=== PATIENT | female | born 1985 | race Caucasian/White ===

== ENCOUNTER 2018-02-12 13:42 | Emergency (ER) | payer OTHER, SELFPAY ==
[2018-02-12 13:43] VITALS: BP 111/68; PULSE 80; RESP 16; TEMP 36.8; O2SAT 100; BMI 23.1
--- NOTE | 2018-02-12 14:01 | RAD_ITS ---
STUDY: X-RAY CHEST REASON FOR EXAM: Female, 32 years old. Chest pain TECHNIQUE: Single frontal view COMPARISON: June 21, 2016 FINDINGS: The lungs are clear and expanded. There is no demonstrated pleural abnormality. Normal size heart. Normal mediastinum and stephane. Normal visualized pulmonary arteries. Normal visualized aortic arch and descending thoracic aorta. Slight scoliosis of the thoracic spine. Normal visualized ribs, clavicles, and shoulders. There is no demonstrated abnormality of the visualized soft tissue structures of the upper abdomen. RAD/Chest 1 View (Portable) IMPRESSION: Normal x-ray examination of the chest. Electronically Signed: Sang Palafox DO at 14:57 EST Tel [phone], Service support ,
--- NOTE | 2018-02-12 14:01 | EKG12_ITS ---
Test Reason : ILL Blood Pressure : / mmHG Vent. Rate : 067 BPM Atrial Rate : 067 BPM P-R Int : 140 ms QRS Dur : 082 ms QT Int : 366 ms P-R-T Axes : 073 093 053 degrees QTc Int : 386 ms Normal sinus rhythm Rightward axis Borderline ECG Confirmed by ERIC GARCIA, MARY LOU ([id number]), field map editor INDIRA STANLEY ([id number]) on 02/15/2018 3:55:26 PM Referred By: EUGENIO Confirmed By:MARY LOU REYES MD
[2018-02-12 14:29] VITALS: PULSE 71; RESP 20
[2018-02-12] MEDS: Ipratropium/Albuterol Sulfate 3 ML AMPUL.NEB INHALATION (14:29)
[2018-02-12] MEDS: 0.9% Normal Saline 1,000 ML 150 ML IV (14:40)
[2018-02-12] MEDS: Aspirin 81 MG TAB.CHEW 324 MG PO (14:43)
[2018-02-12] MEDS: Ondansetron 4 MG/2 ML Vial IV (14:45)
[2018-02-12] MEDS: morphine 8 MG/ML Syringe IV (14:45)
--- NOTE | 2018-02-12 14:57 | ED.VISSUMM ---
- ER Visit Summary Date of Service: 02/12/18 Chief Complaint: [] Runny nose sore throat chest congestion History of Present Illness: The patient is a 32 F [] patient presents complaining of the above she indicates she had this over the last 3-5 days she was seen at an outside facility started on Augmentin, she indicates her sore throat is much improved as is her facial congestion and runny nose but she now has chest congestion and a sense of chest tightness but really when she coughs the cough is dry nonproductive. She has no history of ND PE or DVT asthma emphysema she does not smoke. family indicates she is concerned that the Augmentin is the wrong antibiotic and was wondering if she needed to be switched to a different one Physical Examination: [] Her blood pressure is 111/68 she is in no distress her nose is slightly congested throat is slightly red airways intact she has a prior history for partial thyroidectomy and tonsillectomy but again the airways intact and normal the neck is very supple the lungs are clear the heart tones are normal the abdomen soft nontender upper lower extremities neurologic exam normal lower extremities show no cyanosis clubbing or edema Test Results: [] Emergency Department Course and Treatment: [] Patient indicates this all began with a URI sore throat nasal congestion chest congestion cough clinically she looks well she has no history of ND PE or DVT or anything life-threatening at this time screening labs were obtained EKG shows a sinus rhythm nothing acute The patient's evaluation revealed generally unremarkable lab and chest x-ray studies please see those reports she is resting comfortably in the bed of explained the studies to her and her family having spent this time it appears safe to discharge her home they again question whether or not the Augmentin should be switched to something else I have explained that given that the Augmentin actually appeared to help her sore throat it is best to complete that prescription rather than switching to a different antibiotic may cause complications she will be provided with a Proventil inhaler prescription she will follow with her family doctor return for change in symptoms Treatment Plan: [] Disposition: [] Home stable Impression: [] URI, sense of chest congestion and cough This note was generated with [employer] software. It may contain incorrect words, spelling, and punctuation that were not noted in review of the chart prior to signing ED Disposition - Plan for ED Patient: Chief Complaint: Chest Pain Referrals: Dick Valentine DO [Primary Care Provider] -
[2018-02-12 14:58] LABS: Absolute Lymphocyte Count 1.08 X10^3/ul (0.83-4.51); Absolute Neutrophil Count 6.7 X10^3/uL (2.0-7.7); Basophil# 0.02 X10^3/uL; Basophil% 0.2 % (0-1); Hematocrit 36.9 % (37-47); Hemoglobin 11.9 g/dl (12.0-15.0); Lymphocyte # 1.08 X10^3/ul (4.0); Lymphocyte % 13.3 % (19-41); Mean Corp Hgb Conc 32.2 g/gl (32-36); Mean Corpuscular Hgb 30.2 pg (27.0-32.0); Mean Corpuscular Volume 93.7 fL (81-99); Mean Platelet Vol. 10.5 fl (6.2-12.0); Monocyte# 0.31 X10^3/uL; Monocyte% 3.8 % (0-10); Neutrophil # 6.72 X10^3/uL (2.7-7.7); Neutrophil % 82.5 % (47-70); Platelet Count 177 K/mm3 (150-450); RBC Distribution Width CV 13.5 % (11.6-14.6); RBC Distribution Width SD 44.5 fl (35.1-43.9); Red Blood Count 3.94 M/mm3 (4.2-5.4); White Blood Count 8.2 K/mm3 (4.4-11.0)
[2018-02-12 14:59] LABS: POSITIVE COUNT NO; POSITIVE DIFFERENTIAL NO; POSITIVE MORPHOLOGY NO
[2018-02-12 15:06] LABS: Anion Gap 5 (5-15); BUN 16 mg/dL (7-18); Calcium,Total 8.2 mg/dL (8.5-10.1); Chloride 105 mmol/L (98-107); Creatinine, Serum 0.64 mg/dL (0.55-1.02); EST Glomerular Filtration Rate 115 mL/min (>60); Est Glom Filt Rate - Afr Amer 139 mL/min (>60); Estimated Creatinine Clearance 114.61 ml/min; Glucose 119 mg/dL (74-106); Potassium 3.8 mmol/L (3.5-5.1); Sodium Level 138 mmol/L (136-145)
--- NOTE | 2018-02-12 16:17 | ED.DEP ---
ED Disposition - Plan for ED Patient: Chief Complaint: Chest Pain Instructions: ED Chest Pain Atypical Unkn Cause, ED Upper Resp Infec Abx Tx Prescriptions: Albuterol Inhaler [Ventolin Hfa] 2 puff INHALATION Q4H PRN PRN #1 inhaler PRN Reason: Wheezing Referrals: Dick Valentine DO [Primary Care Provider] -
[2018-02-12 16:39] VITALS: BP 100/58; PULSE 64; RESP 14; O2SAT 97
--- NOTE | 2018-02-12 16:39 | ED.RN ---
pt given written and verbal discharge instructions and home going prescriptions. pt family and pt verbalize understanding and deny any further questions. pt iv d/c and covered with 2x2 gauze dressing and paper tape. pt dresses self and ambulates out of dept with family.
== END 2018-02-12 16:49 | disposition home or self-care (01) ==
LOC: ED 14:49
PROVIDERS: Emergency Provider Emergency Medicine; Family Provider Family Medicine; PCP Family Medicine
DX: J06.9 Acute upper respiratory infection, unspecified (principal); R09.89 Other specified symptoms and signs involving the circulatory and respiratory systems; R05 Cough
CPT/HCPCS: 71045; 80048; 84484; 85025; 93005; 94640; 96361; 96374; 96375; 99284; J7030; J2405

== ENCOUNTER → 2019-06-15 17:12 | Outpatient (CLI) | payer OTHER, SELFPAY ==
[2019-06-07 17:34] VITALS: BMI 23.1
--- NOTE | 2019-06-15 17:20 | RAD_ITS ---
STUDY: X-RAY CHEST REASON FOR EXAM: Female, 33 years old. SOB and chest tightness x 1 week. TECHNIQUE: Frontal and lateral views COMPARISON: February 12, 2018 FINDINGS: The lungs are clear and expanded. There is no demonstrated pleural abnormality. Normal size heart. Normal mediastinum and stephane. Normal visualized pulmonary arteries. Normal visualized aortic arch and descending thoracic aorta. Mild scoliosis of the thoracic spine. Normal visualized ribs, clavicles, and shoulders. There is no demonstrated abnormality of the visualized soft tissue structures of the upper abdomen. RAD/Chest PA and Lateral IMPRESSION: Normal x-ray examination of the chest. Electronically Signed: Sang Palafox DO at 23:55 EDT Tel [phone], Service support ,
== END ==
PROVIDERS: PCP Family Medicine; Referring Provider Family Medicine; Visit Provider Family Medicine
DX: R06.02 Shortness of breath (principal)
CPT/HCPCS: 71046

== ENCOUNTER 2020-11-15 19:03 | Emergency (ER) | payer OTHER, SELFPAY ==
[2019-06-07 17:34] VITALS: BMI 23.1
[2020-11-15 19:04] VITALS: BP 101/59; PULSE 81; RESP 16; TEMP 36.3; O2SAT 99; BMI 23.3
[2020-11-15 20:03] LABS: Bacteria 0 SEEN /hpf (None Seen); Mucous, Urine 0 SEEN /hpf (<or=2+); White Blood Cells 0 SEEN /hpf (0-5)
[2020-11-15 20:04] LABS: Color, Urine Amber (Yellow); Glucose, Dipstick Normal (Normal); Ketone-Dipstick Negative (Negative); Leukocyte Esterase-Dipstick 100 /ul (Negative); Nitrite-Dipstick Negative (Negative); Occult Blood-Urine 250 /ul (Negative); Protein-Dipstick 30 mg/dl (Negative); Urine Bilirubin Dipstick Negative (Negative); Urine Clarity Cloudy (Clear); Urine Urobilinogen Normal (Normal)
[2020-11-15 20:06] LABS: Absolute Neutrophil Count 8.6 X10^3/uL (2.0-7.7); Basophil# 0.05 X10^3/uL; Basophil% 0.4 % (0-1); Eosinophil# 0.08 X10^3/uL; Eosinophils% 0.7 % (0-5); Hematocrit 40.1 % (37-47); Hemoglobin 12.8 g/dL (12.0-15.0); Lymphocyte % 15.2 % (19-41); Mean Corp Hgb Conc 31.9 g/dL (32-36); Mean Corpuscular Hgb 29.9 pg (27.0-32.0); Mean Corpuscular Volume 93.7 fL (81-99); Monocyte# 0.77 X10^3/uL; Monocyte% 6.9 % (0-10); NRBC Flagged by Analyzer 0 % (0-5); Neutrophil # 8.58 X10^3/uL (2.7-7.7); Neutrophil % 76.4 % (47-70); Platelet Count 229 K/mm3 (150-450); RBC Distribution Width CV 13.1 % (11.6-14.6); RBC Distribution Width SD 44.9 fl (35.1-43.9); Red Blood Count 4.28 M/mm3 (4.2-5.4); White Blood Count 11.2 K/mm3 (4.4-11.0)
[2020-11-15 20:13] LABS: Internal QC Validated? YES +Cl - CLEAR BKGD; Pregnancy, Serum, hCG Quali. NEGATIVE Negative
[2020-11-15 20:17] LABS: Red Blood Cells-Urine > 100 SEEN /hpf (0-5); Squamous Epithelial Cells - UA 0-5 SEEN /hpf (5-10)
[2020-11-15 20:21] LABS: Anion Gap 3 (5-15); BUN 8 mg/dL (7-18); BUN/Creat Ratio 11.7 RATIO (10-20); Calcium,Total 8.7 mg/dL (8.5-10.1); Chloride 107 mmol/L (98-107); Creatinine, Serum 0.68 mg/dL (0.55-1.02); EST Glomerular Filtration Rate 105 mL/min (>60); Est Glom Filt Rate - Afr Amer 127 mL/min (>60); Glucose 92 mg/dL (74-106); Potassium 3.3 mmol/L (3.5-5.1); Sodium Level 140 mmol/L (136-145)
--- NOTE | 2020-11-15 21:07 | EDS_ITS ---
HPI History of Present Illness Chief Complaint: Abd Pain Informant: patient Narrative Narrative: 35-year-old female states that at 10:00 this morning she developed a periumbilical lower abdominal pain. She describes a sharp and stabbing. It has been constant. She denies any urinary symptoms. No diarrhea. She does note some vomiting this morning. No reported fevers. Initially states that she has not had any abdominal surgeries and later notes that she has had prior appendectomy and cholecystectomy. PFSH PFSH Home Medications NK 11/15/20 [History Last Taken Unknown] hydrocodone-acetaminophen 1 tab PO Q6H PRN PRN 3 Days #10 tablet 11/16/20 [Rx Last Taken Unknown] Allergy/AdvReac Type Severity Reaction Status Date / Time No Known Allergies Allergy Verified 11/15/20 19:06 Surgical History (Updated 11/15/20 @ 21:[address] Chris Tan, DO) History of appendectomy History of knee surgery History of thyroid surgery Hx of cholecystectomy Social History (Updated 06/07/19 @ 18:03 by Renan VORA, PA) Smoking Status: Never smoker alcohol intake: never ROS ROS ED Constitutional Constitutional ED: Denies chills or weight loss Eyes Eyes: Denies change in vision or diplopia ENT ENT ED: Denies ear pain, rhinorrhea or sore throat Cardiovascular Cardiovascular: Denies chest pain, orthopnea, palpitations or racing heartbeat Respiratory/Chest Respiratory/Chest: Denies cough, dyspnea or orthopnea Gastrointestinal Gastrointestinal: Reports abdominal pain, nausea and vomiting; Denies diarrhea Genitourinary Genitourinary ED: Denies dysuria, hematuria or urinary frequency Musculoskeletal Musculoskeletal: Denies arthralgias or myalgias Integumentary Denies abscess or rash Neurologic Neurologic: Denies headache(s) or weakness Psychiatric Psychiatric: Denies anxiety, depression, suicidal ideation or suicidal thoughts Endocrine Endocrinology: Denies polydipsia, polyphagia or polyuria Allergic/Immunologic Allergic/Immunologic ED: Denies mouth swelling, tongue swelling or urticaria EXAM Physical Exam Const Vital Signs: 11/15/20 19:04 11/15/20 22:01 11/15/20 23:25 Temperature 97.4 F L Temperature Source Temporal Pulse Rate 81 66 72 Respiratory Rate 16 16 16 Blood Pressure 101/59 L 104/61 102/64 Blood Pressure Mean 73 75 76 Pulse Ox 99 97 Oxygen Delivery Method Room Air Room Air Positive well nourished and well developed General Appearance ED: well developed HEENT Reports normocephalic, head/scalp atraumatic and moist mucous membranes Eyes PERRL and EOMs intact bilaterally Neck no lymphadenopathy, supple and no JVD Resp normal respiratory effort and clear to auscultation bilaterally Cardio regular rate, regular rhythm and no murmurs GI Palpation: soft and tender LLQ, RLQ, periumbilical and suprapubic Back/Spine no CVA tenderness and normal ROM Extremity normal to inspection General Extremety ED: Negative for edema General Extremity: Negative for edema Neuro oriented x3 and CN's II-XII intact bilaterally Sensorium / Orientation: alert Motor Exam: strength 5/5 throughout Psych mental status grossly normal Mood & Affect: Negative for depressed or tearful Skin no rashes or lesions noted and no wounds MDM MDM MDM Narrative Medical decision making narrative: White count slightly elevated 11.2. Urinalysis shows greater than 100 red blood cells she is currently on her period. Not . CT the pelvis was obtained. This was concerning for pelvic mass. Pelvic ultrasound was obtained which is most likely uterine fibroids. She refused a transvaginal examination. I expressed my concerns that the patient should probably see gynecology. She is really set on seeing a mid nurse nursing manager and I said multiple times that it would be best to see gynecology. Father is in the room who notes understanding. Lab Data Attestation: I reviewed the patient's lab results. Labs: Laboratory Results - last 24 hr 11/15/20 11/15/20 11/15/20 19:55 20:00 20:00 WBC 11.2 H RBC 4.28 Hgb 12.8 Hct 40.1 MCV 93.7 MCH 29.9 MCHC 31.9 L RDW Std Deviation 44.9 H RDW Coeff of Patrice 13.1 Plt Count 229 MPV 10.0 Immature Gran % (Auto) 0.400 Neut % (Auto) 76.4 H Lymph % (Auto) 15.2 L [place] % (Auto) 6.9 Eos % (Auto) 0.7 Baso % (Auto) 0.4 Absolute Neuts (auto) 8.6 H Absolute Lymphs (auto) 1.70 Nucleated RBC % 0 Sodium 140 Potassium 3.3 L Chloride 107 Carbon Dioxide 30.0 Anion Gap 3 L BUN 8 Creatinine 0.68 Estim Creat Clear Calc 104.90 Est GFR (MDRD) Af Amer 127 Est GFR (MDRD) Non-Af 105 BUN/Creatinine Ratio 11.7 Glucose 92 Calcium 8.7 Serum , Qual Urine Color [place] Urine Clarity Cloudy Urine pH 5.0 Ur Specific [place] 1.020 Urine Protein 30 H Urine Glucose (UA) Normal Urine Ketones Negative Urine Occult Blood 250 H Urine Nitrite Negative Urine Bilirubin Negative Urine Urobilinogen Normal Ur Leukocyte Esterase 100 H Urine RBC > 100 SEEN Urine WBC 0 SEEN Ur Squamous Epith Cells 0-5 SEEN Urine Bacteria 0 SEEN Urine Mucus 0 SEEN 11/15/20 20:00 WBC RBC Hgb Hct MCV MCH MCHC RDW Std Deviation RDW Coeff of Patrice Plt Count MPV Immature Gran % (Auto) Neut % (Auto) Lymph % (Auto) [place] % (Auto) Eos % (Auto) Baso % (Auto) Absolute Neuts (auto) Absolute Lymphs (auto) Nucleated RBC % Sodium Potassium Chloride Carbon Dioxide Anion Gap BUN Creatinine Estim Creat Clear Calc Est GFR (MDRD) Af Amer Est GFR (MDRD) Non-Af BUN/Creatinine Ratio Glucose Calcium Serum , Qual NEGATIVE Urine Color Urine Clarity Urine pH Ur Specific [place] Urine Protein Urine Glucose (UA) Urine Ketones Urine Occult Blood Urine Nitrite Urine Bilirubin Urine Urobilinogen Ur Leukocyte Esterase Urine RBC Urine WBC Ur Squamous Epith Cells Urine Bacteria Urine Mucus Radiography Diagnostic Testing: Radiology Impression Abdomen/Pelvis CT 11/15/20 21:20 IMPRESSION: Suspicion of heterogeneous multidensity masses in the pelvis which may be fibroids, and/or ovarian/adnexal masses. Exam limited by the absence of oral contrast. Recommend further evaluation such as pelvic ultrasound, although contrast-enhanced MRI would probably be more useful. Electronically Signed: Mikael Olivas MD at 22:31 EDT , Service support , Pelvis Ultrasound 11/15/20 22:35 IMPRESSION: Findings seen on CT scan appear to represent exophytic uterine fibroids. However the patient declined transvaginal imaging and therefore this exam is limited. As indicated in the report of the CT scan, contrast MRI should be considered. Electronically Signed: Mikael Olivas MD at 23:56 EDT , Service support , Discharge Plan Triage Chief Complaint: Abd Pain ED Provider: Chris Tan Dx/Rx/DC Orders Clinical Impression: Abdominal pain, acute, Uterine fibroid Instructions: ED Uterine Fibroids Prescriptions: New hydrocodone-acetaminophen [hydrocodone-acetaminophen] 1 TABLET tablet 1 tab PO Q6H PRN PRN (Reason: Pain) 3 Days Qty: 10 RF: 0 No Action NK RF: 0 Primary Care Provider: Dick Valentine Referrals: Dick Valentine DO [Primary Care Provider] - As Needed Yue Teixeira DO [STAFF PHYSICIAN] - As soon as possible Disposition Disposition: Home, Self Care
--- NOTE | 2020-11-15 21:20 | CT_ITS ---
STUDY: CT ABDOMEN AND PELVIS WITH CONTRAST REASON FOR EXAM: Female, 35 years old. abdominal pain RADIATION DOSAGE (If Supplied By Facility): CTDIvol = ( 10.06 ) mGy, DLP = ( 594.87 ) mGycm TECHNIQUE: Transaxial images were obtained from the dome of the diaphragm to the symphysis pubis without oral contrast. IV 100mL Isovue-300 was administered. Sagittal and coronal images were reconstructed. Individualized dose optimization techniques were used for this CT. COMPARISON: None. FINDINGS: The visualized lung bases are unremarkable. The visualized portions of the heart are within normal limits. Normal liver. There are surgical clips in the gallbladder fossa consistent with a prior cholecystectomy. Normal spleen. Normal pancreas. Normal bilateral adrenal glands. Normal right kidney. Normal left kidney. Evaluation of the GI tract is limited by absence of oral contrast. Cannot exclude stomach wall thickening. No dilated loops of bowel or evidence for obstruction. Cannot exclude segmental thickening of the andres of the small or large bowel. Cannot exclude enteritis or colitis. Moderate diffuse fecal retention. Appendix within normal limits. Normal abdominal aorta. Normal inferior vena cava. Normal retroperitoneum. Normal urinary bladder. Abnormal appearance in the pelvis where there appear to be several heterogeneous cystic and soft tissue structures which could be related to the ovary/adnexa bilaterally and for which mass cannot be excluded. As example, there is a 2.8 cm probable solid mass to the left of midline above the bladder and a possible cystic 3.3 cm mass in the right pelvis. The exam is made difficult by the absence of GI contrast and further evaluation is indicated. Normal abdominal wall. Normal osseous structures. CT/Abdomen/Pelvis W IV Cont ONLY IMPRESSION: Suspicion of heterogeneous multidensity masses in the pelvis which may be fibroids, and/or ovarian/adnexal masses. Exam limited by the absence of oral contrast. Recommend further evaluation such as pelvic ultrasound, although contrast-enhanced MRI would probably be more useful. Electronically Signed: Mikael Olivas MD at 22:31 EDT , Service support ,
[2020-11-15 22:01] VITALS: BP 104/61; PULSE 66; RESP 16
--- NOTE | 2020-11-15 22:35 | US_ITS ---
STUDY: ULTRASOUND OF THE FEMALE PELVIS - COMPLETE REASON FOR EXAM: Female, 35 years old. mass- pelv LMP: 11/15/2020 TECHNIQUE: Transabdominal TECHNICAL QUALITY: Adequate. COMPARISON: CT scan of the same day. FINDINGS: Anteverted uterus measuring 8.0 x 5.2 x 6.5 cm. 4 mm endometrial echoes which are hyperechoic. There is fluid in the endometrial cavity. Multiple exophytic fibroids are seen with the 2 largest measuring 3.1 and 3.6 cm. The right ovary is visualized. The right ovary measures 3.9 x 2.2 x 2.1 cm. There is no right ovarian cyst or ovarian mass. There is no visualized right adnexal mass or complex lesion. There is normal arterial and normal venous vascularity. The left ovary is visualized. The left ovary measures 3.8 x 2.3 x 2.1 cm. There is no left ovarian cyst or ovarian mass. There is no visualized left adnexal mass or complex lesion. There is normal arterial and normal venous vascularity. There is no fluid in the cul-de-sac. Normal bladder contour. US/Pelvic (Non ) IMPRESSION: Findings seen on CT scan appear to represent exophytic uterine fibroids. However the patient declined transvaginal imaging and therefore this exam is limited. As indicated in the report of the CT scan, contrast MRI should be considered. Electronically Signed: Mikael Olivas MD at 23:56 EDT , Service support ,
[2020-11-15] MEDS: Morphine 4 MG/ML Syringe IV (23:23)
[2020-11-15 23:25] VITALS: BP 102/64; PULSE 72; RESP 16; O2SAT 97
[2020-11-16 00:53] VITALS: RESP 16
== END 2020-11-16 00:53 | disposition home or self-care (01) ==
PROVIDERS: Emergency Provider Emergency Medicine; PCP Family Medicine
DX: D25.9 Leiomyoma of uterus, unspecified (principal); R10.9 Unspecified abdominal pain; R11.2 Nausea with vomiting, unspecified
CPT/HCPCS: 74177; 76856; 80048; 81001; 84703; 85025; 96374; 99283; Q9967; A4216

== ENCOUNTER 2021-07-10 14:59 | Outpatient (CLI) | payer OTHER, SELFPAY ==
[2021-07-10 17:12] LABS: Hemoglobin 12.3 g/dL (12.0-15.0); Mean Corp Hgb Conc 32.4 g/dL (32-36); Mean Corpuscular Hgb 29.1 pg (27.0-32.0); Mean Platelet Vol. 10.7 fl (6.2-12.0); Platelet Count 250 K/mm3 (150-450); RBC Distribution Width CV 13.5 % (11.6-14.6); RBC Distribution Width SD 44.5 fl (35.1-43.9); Red Blood Count 4.22 M/mm3 (4.2-5.4)
[2021-07-15 16:33] LABS: Cancer Antigen 125 37.3 U/mL (0.0-38.1); Carcinoembryonic Antigen 0.8 ng/mL (0.0-4.7)
[2021-07-15 16:34] LABS: Carbohydrate Ag 19-9 2261 8 U/mL (0-35)
== END 2021-07-10 23:59 | disposition home or self-care (01) ==
LOC: WOBLAB 15:00
PROVIDERS: PCP Family Medicine; Visit Provider Obstetrics & Gynecology
DX: N83.209 Unspecified ovarian cyst, unspecified side (principal)
CPT/HCPCS: 36415; 82378; 85027; 86301; 86304

== ENCOUNTER → 2022-11-20 | Outpatient (CLI) | payer OTHER, SELFPAY | END | disposition home or self-care (01) | PROVIDERS: PCP Family Medicine; Visit Provider Physician Assistant Surgical | DX: R35.0 Frequency of micturition (principal) | CPT/HCPCS: 87086; 87088; 87186 ==

== ENCOUNTER 2023-04-29 19:55 | Emergency (ER) | payer OTHER, SELFPAY ==
[2023-04-29 19:56] VITALS: BP 89/53; PULSE 82; RESP 16; TEMP 36.3; O2SAT 100
--- OUTSIDE RECORDS SUMMARY | 2023-04-29 20:15 | XMS RPT_ITS | CCD ---
Author Name Unknown Address [address] [place] [address] Organization [facility] Care Team Providers Care Supervisory Training Specialist Name Role Phone DICK VALENTINE DO Primary Care Physician DICK VALENTINE Consulting Unavailable DICK VALENTINE Primary Care Unavailable DICK VALENTINE Admitting Unavailable DICK VALENTINE Attending Unavailable PROVIDER, UNKNOWN Consulting Unavailable DICK VALENTINE Consulting Unavailable SRINATH MORENO Attending Unavailable SRINATH MORENO Primary Care Unavailable SRINATH MORENO Admitting Unavailable PROVIDER, UNKNOWN Consulting Unavailable DICK VALENTINE Primary Care Unavailable DICK VALENTINE Admitting Unavailable DICK VALENTINE Attending Unavailable DICK VALENTINE Consulting Unavailable PROVIDER, UNKNOWN Consulting Unavailable Dick Valentine DO Primary Care Provider [phone] SRINATH STANLEY Admitting Unavailable SRINATH STANLEY Attending Unavailable DICK VALENTINE Primary Care Unavailable Medications Current Medications Medication Drug Class(es) Dates Sig (Normalized) Sig (Original) acetaminophen 325 mg / HYDROcodone bitartrate 5 mg oral tablet (8 sources) Opioid Agonist Start: 01-22-2023 End: 01-29-2023 take 1 tablet by mouth every six hours as needed for pain HYDROcodone-acetami nophen (NORCO) 5-325 mg per tablet Indications: Complication due to device, implant, or graft, subsequent encounter Take 1 tablet by mouth every 6 hours as needed for pain for up to 7 days. 28 tablet 0 01/22/2023 01/29/2023 Active Completed/Discontinued Medications Medication Drug Class(es) Dates Sig (Normalized) Sig (Original) ALPRAZolam 0.25 mg oral tablet (2 sources) Benzodiazepine Start: 01-07-2023 take 0.125-0.25 mg by mouth every twelve hours as needed ALPRAZolam (XANAX) 0.25 mg tablet Take 0.125-0.25 mg by mouth two times a day as needed. 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-2022 Chronic Ovarian cyst (1 source) Cyst of right ovary; Translations: [Unspecified ovarian cyst, right side] Onset: 08-06-2021 Episodic Thyroid disorders (2 sources) 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-26-2017 Chronic Past or Other Problems Problem Classification Problem Date Documented Da te Episodic/Chronic Abdominal pain (4 sources) Pelvic and perineal pain; Translations: [Pelvic and perineal pain] Onset: 04-24-2009 Episodic Nausea and vomiting (1 source) Nausea and vomiting; Translations: [Nausea with vomiting, unspecified] Onset: 04-24-2009 04-24-2009 Episodic Other gastrointestinal disorders (1 source) Diarrhea; Translations: [Diarrhea, unspecified] Onset: 04-24-2009 04-24-2009 Episodic Results Test Name Value Interpretation Reference Range Facil ity Vital Signs Date Time Vital Sign Value Performing Clinician Facility 01-22-2023 16:00-0400 Diastolic blood pressure 31 mm[Hg] Srinath Stanley DPM Work Phone: [facility] 01-22-2023 16:00-0400 SaO2% (BldA) [Mass fraction] 100 % Srinath Stanley DPM Work Phone: [facility] 01-22-2023 16:00-0400 Systolic blood pressure 107 mm[Hg] Srinath Stanley DPM Work Phone: [facility] 01-22-2023 15:26-0400 Body temperature 97.3 [degF] Srinath Stanley DPM Work Phone: [facility] 01-22-2023 11:00-0400 Body height 165.1 cm Srinath Stanley DPM Work Phone: [facility] 01-22-2023 11:00-0400 Body weight 70.2 kg Srinath Stanley DPM Work Phone: [facility] 01-22-2023 11:00-0400 Respiratory rate 18 /min Srinath Stanley DPM Work Phone: [facility] 09-07-2021 08:57-0400 Body temperature 98.6 [degF] DR NIECY CLINE DO [facility] 09-07-2021 08:57-0400 Diastolic blood pressure 67 mm[Hg] DR NIECY CLINE DO [facility] 09-07-2021 08:57-0400 Heart rate 80 /min DR NIECY CLINE DO [facility] 09-07-2021 08:57-0400 Respiratory rate 18 /min DR NIECY CLINE DO [facility] 09-07-2021 08:57-0400 Systolic blood pressure 111 mm[Hg] DR NIECY CLINE DO [facility] 09-06-2021 21:57-0400 Body temperature 97.34 [degF] DR NIECY CLINE DO [facility] 09-06-2021 21:57-0400 Diastolic blood pressure 68 mm[Hg] DR NIECY CLINE DO [facility] 09-06-2021 21:57-0400 Heart rate 71 /min DR NIECY CLINE DO [facility] 09-06-2021 21:57-0400 Reason For Taking VItal Signs DR NIECY CLINE DO [facility] 09-06-2021 21:57-0400 Respiratory rate 18 /min DR NIECY CLINE DO [facility] 09-06-2021 21:57-0400 Systolic blood pressure 110 mm[Hg] DR NIECY CLINE DO [facility] 09-06-2021 16:03-0400 Body temperature 97.34 [degF] DR NIECY CLINE DO [facility] 09-06-2021 16:03-0400 Diastolic blood pressure 68 mm[Hg] DR NIECY CLINE DO [facility] 09-06-2021 16:03-0400 Heart rate 71 /min DR NIECY CLINE DO [facility] 09-06-2021 16:03-0400 Reason For Taking VItal Signs DR NIECY CLINE DO [facility] 09-06-2021 16:03-0400 Respiratory rate 18 /min DR NIECY CLINE DO [facility] 09-06-2021 16:03-0400 Systolic blood pressure 108 mm[Hg] DR NIECY CLINE DO [facility] 09-06-2021 12:58-0400 Diastolic Blood Pressure NBP [address] NIECY CLINE DO [facility] 09-06-2021 12:58-0400 Reason For Taking VItal Signs DR NIECY CLINE DO [facility] 09-06-2021 12:58-0400 Systolic Blood Pressure NBP [address] NIECY CLINE DO [facility] 09-06-2021 07:04-0400 Diastolic Blood Pressure NBP [address] NIECY CLINE DO [facility] 09-06-2021 07:04-0400 Systolic Blood Pressure NBP [address] NIECY CLINE DO [facility] 09-05-2021 22:17-0400 Diastolic Blood Pressure NBP [address] NIECY CLINE DO [facility] 09-05-2021 22:17-0400 Systolic Blood Pressure NBP [address] NIECY CLIEN DO [facility] 09-05-2021 18:45-0400 Body height 165.[address] NIECY CLINE DO [facility] 09-05-2021 18:45-0400 Body weight 63.[address] NIECY CLINE DO [facility] 09-05-2021 18:45-0400 Body weight 23.3 kg/m2 DR NIECY CLINE DO [facility] 09-05-2021 18:38-0400 Mean blood pressure 83 mm[Hg] DR NIECY CLINE DO [facility] 09-05-2021 17:38-0400 Body temperature 97.7 [degF] DR NIECY CLINE DO [facility] 09-05-2021 17:38-0400 Heart rate 69 /min DR NIECY CLINE DO [facility] 09-05-2021 17:38-0400 Mean blood pressure 78 mm[Hg] DR NIECY CLINE DO [facility] 09-05-2021 17:34-0400 Heart rate 71 /min DR NIECY CLINE DO [facility] 09-05-2021 17:34-0400 Mean blood pressure 78 mm[Hg] DR NIECY CLINE DO [facility] 09-05-2021 17:00-0400 Heart rate 65 /min DR NIECY CLINE DO [facility] 09-05-2021 16:32-0400 Body temperature 97.52 [degF] DR NIECY CLINE DO [facility] 09-05-2021 16:32-0400 Mean blood pressure 78 mm[Hg] DR NIECY CLINE DO [facility] 09-05-2021 12:33-0400 Body temperature 97.16 [degF] DR NIECY CLINE DO [facility] 09-05-2021 10:30-0400 Body temperature 95.14 [degF] DR NIECY CLINE DO [facility] 09-05-2021 10:25-0400 Body temperature 95.23 [degF] DR NIECY CLINE DO [facility] 09-05-2021 10:20-0400 Body temperature 95.36 [degF] DR NIECY CLINE DO [facility] 09-05-2021 05:40-0400 Body height 165.[address] NIECY CLINE DO [facility] 09-05-2021 05:40-0400 Body weight 63.[address] NIECY CLINE DO [facility] 09-05-2021 05:40-0400 Heart rate 66 /min DR NIECY CLINE DO [facility] 09-05-2021 05:40-0400 Mean blood pressure 71 mm[Hg] DR NIECY CLINE DO [facility] 08-10-2021 15:50-0400 Diastolic blood pressure 60 mm[Hg] DR ELVA PERDOMO DO [facility] 08-10-2021 15:50-0400 Heart rate 77 /min DR ELVA PERDOMO DO [facility] 08-10-2021 15:50-0400 Respiratory rate 16 /min DR ELVA PERDOMO DO [facility] 08-10-2021 15:50-0400 Systolic blood pressure 100 mm[Hg] DR ELVA PERDOMO DO [facility] 08-10-2021 12:54-0400 Body temperature 98.96 [degF] DR ELVA PERDOMO DO [facility] 08-10-2021 12:54-0400 Diastolic blood pressure 73 mm[Hg] DR ELVA PERDOMO DO [facility] 08-10-2021 12:54-0400 Heart rate 93 /min DR ELVA PERDOMO DO [facility] 08-10-2021 12:54-0400 Respiratory rate 18 /min DR STEVENSON POOLFOSTER DO [facility] 08-10-2021 12:54-0400 Systolic blood pressure 107 mm[Hg] DR STEVENSON POOLFOSTER DO [facility] 08-06-2021 20:30-0400 Diastolic blood pressure 62 mm[Hg] KUSH ZUNIGA MD [facility] 08-06-2021 20:30-0400 Heart rate 64 /min KUSH ZUNIGA MD [facility] 08-06-2021 20:30-0400 Respiratory rate 16 /min KUSH ZUNIGA MD [facility] 08-06-2021 20:30-0400 Systolic blood pressure 107 mm[Hg] KUSH ZUNIGA MD [facility] 08-06-2021 18:59-0400 Body height 165.1 cm KUSH ZUNIGA MD [facility] 08-06-2021 18:59-0400 Body temperature 98.42 [degF] KUSH ZUNIGA MD [facility] 08-06-2021 18:59-0400 Body weight 59.1 kg KUSH ZUNIGA MD [facility] 08-06-2021 18:59-0400 Diastolic blood pressure 63 mm[Hg] KUSH ZUNIGA MD [facility] 08-06-2021 18:59-0400 Heart rate 81 /min KUSH ZUNIGA MD [facility] 08-06-2021 18:59-0400 Respiratory rate 16 /min KUSH ZUNIGA MD [facility] 08-06-2021 18:59-0400 Systolic blood pressure 99 mm[Hg] KUSH ZUNIGA MD [facility] Encounters Encounter Date Encounter Type Care Provider Facility Start: 01-22-2023 ambulatory SRINATH STANLEY Faci lity:[phone] Start: 01-22-2023 End: 01-22-2023 Subsequent hospital visit by physician Srinath Stanley DPM Work Phone: [facility] [place] Procedures Date Procedure Procedure Detail Performing Clinician Start: 01-22-2023 Blood count complete auto&auto difrntl wbc Charito Brady PRODUCT SAFETY TECHNICAL ASSISTANT Work Phone: Start: 08-13-2017 Arthrodesis subtalar KA CHARLEE ZUNIGA MD Start: 04-05-2015 Thyroidectomy KUSH LUCERO MD Plan of Treatment Date Care Activity Detail Author Start: 12-04-2022 Influenza vaccination Influenza Vaccine (#1) [facility] Start: 04-05-2022 Depression Assessment Depression Assessment [facility] Start: 2016 HPV Testing HPV Testing [facility] Start: 10-28-2007 Pap Testing Pap Testing [facility] Start: 2005 Urine microalbumin profile DTaP,Tdap,Td Vaccine (1 - Tdap) [facility] Start: 2004 Hepatitis C Screening Hepatitis C Screening [facility] Start: 2004 HIV Screening HIV Screening [facility] Start: 04-29-1987 Covid-19 Vaccine (#1) Covid-19 Vaccine (#1) [facility] Start: 1986 Hepatitis B Vaccine (1 of 3 - 3-dose series) Hepatitis B Vaccine (1 of 3 - 3-dose series) [facility] SURGICAL PATHOLOGY SURGICAL PATH OLOGY Lab Routine Complication due to device, implant, or graft, initial encounter Release Upon Ordering for 1 Occurrences starting 01/22/2023 [facility] Work Phone: Immunizations Immunization Date Immunization Notes Care Provider Segundo caruso 07-28-2013 measles/mumps/rubell a virus vaccine DR NIECY CLINE DO [facility] Payers Date Payer Category Payer Unknown [id number] 2020 Unknown 1986 Unknown [id number] 1986 Unknown [id number] 1986 Unknown [id number] Social History Date Type Detail Facility Start: 08-06-2021 Tobacco smoking status Never s moked tobacco (finding) [facility] Sex Assigned At Sex [facility] Start: 01-22-2023 Alcohol intake Current non-dr tram operator of alcohol (finding) [facility] Start: 01-22-2023 History of Social function [facility] Start: 01-22-[address] [facility] Start: 1985 Sex Assigned At Not on file C [facility] Medical Equipment Procedure Code Equipment Code Equipment Origin al Text Equipment Identifier Dates FDA Start: 08-13-2017 FDA Start: 08-13-2017 FDA Start: 08-13-2017 FDA Start: 08-13-2017 FDA Start: 08-13-2017 FDA Start: 08-13-2017 FDA Start: 08-13-2017 FDA Start: 08-13-2017 Unknown Unknown 08/13/17 Unknown Unknown FDA Start: 08-13-2017 FDA Start: 08-13-2017 FDA Start: 08-13-2017 FDA Start: 08-13-2017 Functional Status Date Assessment Result Facility 09-07-2021 Functional Status Yes [facility] [employer] 09-07-2021 Functional Status [facility] [employer] 09-07-2021 Functional Status [facility] [employer] 09-07-2021 Functional Status High Risk Safe ty Room check performed [facility] 09-06-2021 Functional Status [facility] spital 09-06-2021 Functional Status [facility] 09-06-2021 Functional Status [facility] 09-06-2021 Functional Status [facility] 09-06-2021 Functional Status Done [facility] 09-06-2021 [facility] Functional Status Up with assistance [facility] 09-05-2021 Functional Status Sensory Deficits None A [facility] 09-05-2021 Functional Status Assistive Equi pment abdominal binder on [facility] 09-05-2021 Functional Status ice chips and sips take n [facility] 09-05-2021 Functional Status [facility] Functional Status Identification band [facility] 09-05-2021 Functional Status [facility] Status [facility] Status [facility] 08-10-[facility] Functional Status Ramon [facility] 08-06-2021 Functional Status Ramon haleytal [facility] 08-06-2021 Functional Status [facility] Mental Status Date Assessment Result Facility 09-07-2021 Mental Status Orientation Oriented x 4 [facility] 09-06-2021 Mental Status [facility] 09-06-2021 Mental Status [facility] 08-10-[address] [facility] 08-10-[address] [facility] 08-06-[address] [facility] 08-06-[address] [facility] Clinical Notes 08-06-2021 to 01-22-2023 Negra Morrison RN - 01/22/2023 4:00 PM EDTBrikevin Op Note - Srinath Stanley DPM - 01/22/2023 2:52 PM Srinath Deluna DPM - 01/22/2023 12:14 PM EDCharito Herrera CNP - 01/21/2023 8:50 AM EDT Note Date & Type Note Facility 01-22-2023 Note HNO ID: [id number] Author: Negra Morrison RN Service: ? Author Type: Registered Nurse Type: Nursing Progress Note Filed: 01/22/2023 6:15 PM Note Text: Pt is discharged home w/ surgical shoe on left foot. [facility] 01-22-2023 Nurse Note Pt is discharged home w/ surgical shoe on left foot. documented in this encounter [facility] 01-22-2023 Surgical operatio n note BRIEF OPERATIVE / PROCEDURE NOTE LOG ID: [id number] SURGERY/PROCEDURE DATE: 01/22/2023 INCISION/PROCEDURE START TIME: 2:12 PM INCISION CLOSE/PROCEDURE END TIME: SURGEON(S)/PROCEDURALIST(S) AND RESTAURANT ASSISTANT MANAGER(S): Surgeon(s) and Role: * Srinath Stanley DPM - Primary * Sandro Veronica DPM - Resident - Assisting No Additional Staff SURGERY/PROCEDURE(S): Removal of hardware left foot ANESTHESIA: Monitored Anesthesia Care FINDINGS: None none ESTIMATED BLOOD LOSS: 0 ml SPECIMENS: Hardware to pathology COMPLICATIONS: None None CLOSURE TECHNIQUE: Primary PRE-OP/PRE-PROCEDURE DIAGNOSIS: Painful hardware left foot POST-OP/POST-PROCEDURE DIAGNOSIS: Same as Preop SIGNATURE: Srinath Stanley DPM, DPM PATIENT NAME: Virgie Chávez DATE: January 22, 2023 TIME: 2:52 PM documented in this encounter [facility] 01-22-2023 History and physical note UPDATED HISTORY AND PHYSICAL EXAMINATION SERVICE DATE: 01/22/2023 SERVICE TIME: 12:14 PHYSICAL EXAM MUST BE COMPLETED ON ADMISSION The History and Physical (completed in the past 30 days) has been reviewed and the patient has been examined. The contents accurately reflect the patient's condition with the following additions or revisions since the H&P was completed. Examination indicates no changes. This H&P can be found in the scanned documents dated January,. SIGNATURE: Srinath Stanley DPM, DPM PATIENT NAME: Virgie Chávez DATE: January 22, 2023 TIME: 12:14 PM Source Note - ProviderJudi PA-C - 01/22/2023 8:03 AM EDT documented in this encounter [facility] 01-21-2023 Note HNO ID: [id number] Author: Charito Brady CNP Service: ? Author Type: Nurse Practitioner Type: Progress Notes Filed: 01/21/2023 8:50 AM Note Text: Summary: DOS meds PATIENT MEDICATION INSTRUCTIONS Please read below carefully for your personalized instructions. Medications: If you are on blood thinner or anticoagulants including aspirin, please confirm with your surgical team on when to stop these medications. Unless instructed differently by your surgical team, stay on all of your medications until your surgery. No outpatient medications have been marked as taking for the 01/22/23 encounter (Hospital Encounter). No (Zero) medications the morning of surgery If you have any medication changes between receiving these instructions and your surgery date, please provide this updated information with the nurse who calls you the week day prior to your surgical procedure so we can update your list and provide you with updated instructions for the morning of your procedure. [facility] 01-21-2023 History of Presen t illness Narrative Summary: DOS meds PATIENT MEDICATION INSTRUCTIONS Please read below carefully for your personalized instructions. Medications: If you are on blood thinner or anticoagulants including aspirin, please confirm with your surgical team on when to stop these medications. Unless instructed differently by your surgical team, stay on all of your medications until your surgery. No outpatient medications have been marked as taking for the 01/22/23 encounter (Hospital Encounter). No (Zero) medications the morning of surgery If you have any medication changes between receiving these instructions and your surgery date, please provide this updated information with the nurse who calls you the week day prior to your surgical procedure so we can update your list and provide you with updated instructions for the morning of your procedure. documented in this encounter [facility] 09-07-2021 Hospital Discharg e instructions Patient Education 09/07/2021 14:09:24 8- Post Op [place] Surgery (03/2020) What to Do After Your Gynecology or Gynecology Oncology Surgery This sheet will give you general information on what to do when you are home after surgery. However, you should always follow any specific instructions given to you by your surgeon. Pain Medication Please follow the directions on the label of your medication and use your discharge medication list provided by the hospital. Do not take this medication on an empty stomach. This may cause a stomachache. Use a stool softener or gentle laxative (milk of magnesia) if needed. Constipation is not uncommon while taking oral pain medication. Use less of any narcotic pain medication as soon as your pain allows. You may take ysdu-qvi-rcmbwgu pain medication if you no longer need your prescribed pain medication. Gpig-dar-zomhaeh pain medications are Tylenol (acetaminophen) or Advil (ibuprofen). Do not take Tylenol if you are still taking [place] or Percocet. They are the same type of medication. Too much acetaminophen can hurt your liver. Activity It is OK to use the stairs, but try to avoid them or take less trips right after surgery. After surgery, you may feel tired. Rest is important for healing. Slowly increase your activity level by walking and doing normal activities as you feel comfortable. Follow surgeon instructions on driving. You may not be able to drive for one to six weeks depending on what surgery and incisions you have. Do not drive while taking narcotic pain medication. They should be out of your system for 24 hours. Diet Eating smaller meals instead of three large meals is good. This may help with your appetite and nutrition. Good nutrition will help you heal. Follow diet instructions that you were taught after surgery. Infection Prevention Washing your hands is one of the best ways to prevent infection. Always wash your hands before and after touching your incision or dressing. Hands carry germs that can cause infections. Try not to touch your incision. Keep the Incision Clean Wear clean, loose-fitting clothes to prevent clothes from rubbing on the incision. Put clean sheets on your bed when you get home. Do not let other people or animals touch the incision. Showering You may start to shower 24 hours after your surgery. Use a clean washcloth and towel on your incision before you use it on any other area of your body. Adjust the shower spray to gentle and use warm water. Gently wash over your incision using antibacterial soap and water and pat it dry. Do not rub the incision. Do not soak or submerge in the bathtub or hot tub until your surgeon says it is OK. Wound Care When you go home, you may leave your incision(s) open to the air. Your incision(s) may be closed with sutures or karen. If incision is closed with sutures under the skin, you do not need to have these removed as they will dissolve on their own. If incision is closed with karen, the karen will need to be removed. If your incision is horizontal (sideways), they need to be removed within three to seven days. If your incision is vertical (up and down), they need to be removed within 10 14 days. If you have thin white tape strips (Steri-Strips) over your incision, keep them dry. Do not remove them unless they begin curling up at the sides and are almost falling off or have been in place for seven days. If your incision begins coming apart, has drainage (thick, foul smelling, white, yellow, green, pink or red) with redness around the incision and feels warm to touch, call your surgeon. You may have an infection. Vaginal Care You may have drainage after surgery. Normal colors are watery, brown-black discharge. Vaginal spotting and bleeding are normal. However, if you are soaking two pads in one hour, that is not normal. Call your surgeon. No tampons or douching. NO SEXUAL INTERCOURSE FOR 6 WEEKS. Call Your Doctor If: Your pain is not controlled by pain medication. You have a fever of 100.4 degrees or higher. You have a lot of bleeding from the incision or a lot of vaginal bleeding (more than two pads per hour). You have bad stomach pain or you start throwing up. If you are unable to reach your doctor, go to the hospital. Follow Up If a follow-up appointment has not been made, please call your surgeon s office within a day. Let the office know if you have karen and they will schedule them to be removed. Contact your surgeon for any specific problems or questions that you may have. Follow Up Care 08/11/2021 14:50:28 With:NIECY CLINE DO, Obstetrics & Gynecology, Sports Medicine Address: [facility] [employer] [address] [place] [phone]- When: Unknown Comments:Follow-up in [address] Cline. [facility] 08-10-2021 Hospital Discharg e instructions Patient Education 08/10/2021 16:54:01 Pelvic Pain, Unknown Cause Pelvic Pain, Uncertain Cause Pelvic pain is pain felt in the lowest part of the belly (abdomen) and between the hipbones. The pain may occur suddenly and recently (acute). Or the pain may last for 6 months or longer (chronic). There are many possible causes of pelvic pain. The pain may be due to a problem in the female reproductive system. Or, it may be due to a problem in the digestive, urinary, or musculoskeletal systems. Based on your visit today, the exact cause of your pelvic pain is not certain. Your condition does not appear to be serious at this time. But it is important for you to keep watching for any new symptoms or worsening of your condition. General care Your healthcare provider may advise a number of ways to help manage your pain. These can include: Taking ovws-tfs-rkyclvj pain medicine. Stronger pain medicine may also be prescribed, if needed. Applying heat to the pelvic area. Use a heating pad or a hot pack. Taking a hot bath may also help. Getting plenty of rest. Making certain lifestyle changes. These can include practicing good posture and getting regular exercise. Studies have shown that these changes help reduce pelvic pain in some women. Seeing a physical therapist or pain specialist. These healthcare providers can discuss other ways to manage pain with you. Follow-up care Follow up with your healthcare provider, or as advised. When to seek medical advice Call your healthcare provider right away if any of the following occur: Fever of 100.4 F or higher, or as directed by your healthcare provider Pain worsens or you have sudden, severe pain or new pain Nausea, vomiting, sweating, or restlessness Dizziness or fainting Unusual vaginal discharge Abnormal vaginal bleeding (especially bleeding after menopause) [id number] [employer]. [address] [place] [address], [place] [address]. All rights reserved. This information is not intended as a substitute for professional medical care. Always follow your healthcare professional's instructions. Follow Up Care 08/10/2021 12:48:36 With:NIECY CLINE DO, Obstetrics & Gynecology, Sports Medicine Address: [facility] [employer] [address] [place] [phone]- When:1-2 days With:DICK VALENTINE DO Address: .[facility] [address] [address] [address] [facility] [place] [phone] When:2-4 days [facility] 08-06-2021 Hospital Discharg e instructions Patient Education 08/06/2021 21:22:51 Ovarian Cyst Ovarian Cysts The ovaries are two small organs located on each side of a woman s uterus (womb). They are part of the female reproductive system. Ovarian cysts are sacs filled with fluid or tissue that form on or inside the ovaries. Ovarian cysts are common in women, especially during childbearing years. There are different types of cysts. Most are harmless (benign) and go away on their own. They often cause no symptoms. If symptoms do occur, they can include mild pain or pressure in the lower belly (abdomen). Cysts that are large or break (rupture) may cause more severe pain and symptoms. In these cases, you may need hospital care or treatment such as surgery. You may need more extensive treatment if a cyst causes an ovary to twist (called torsion) or if your doctor suspects your cyst is cancerous. Keep in mind that most cysts are not cancerous, however. General care To help relieve pain, your healthcare provider may recommend using ksrf-qmx-fnfmazf pain medicine. If needed, your provide may prescribe stronger pain medicine. Depending on the type of cyst you have, your healthcare provider may advise taking control pills. These help shrink cysts in certain cases. They may also help prevent new cysts from forming. Be sure to take these medicines as directed if they are prescribed. Your healthcare provider may advise you to watch your symptoms over time to see if they go away or worsen. Regular ultrasound tests may also be advised. These can help check if a cyst goes away or grows in size. Follow-up care Follow up with your healthcare provider, or as advised. When to seek medical advice Call your healthcare provider right away if any of these occur: Pain worsens or fails to get better with home treatment Fever of 100.4 F (38 C) or higher (or other fever amount directed by your healthcare provider) Nausea and vomiting Weakness, dizziness, or fainting Abnormal vaginal bleeding [id number] [employer]. [address] [place] [address], [place] [address]. All rights reserved. This information is not intended as a substitute for professional medical care. Always follow your healthcare professional's instructions. Follow Up Care 08/06/2021 18:49:34 With:NIECY CLINE DO, Obstetrics & Gynecology, Sports Medicine Address: [facility] [employer] [address] [place] [phone]- When:2-4 days [facility] Evaluation + Plan note No data available for this section [facility] documented in this encounter [facility] No data available for this section [facility] Summary Purpose Family History No Family History Records FoundNo Family History Records FoundNo Family History Records Found Advance Directives No Advanced Directives Records FoundNo Advanced Directives Records FoundNo Advanced Directives Records Found Medications Administered Section Inactive Administered Medications - up to 3 most recent administrations Medication Order MAR Action Action Date Dose Rate Site lactated ringers iv infusion 5-30 mL/hr, INTRAVENOUS, CONTINUOUS, Starting on Wed01/22/23 at 1230, Until Wed01/22/23 at 1526, Preprocedure Restarted 01/22/2023 1:57 PM EDT Additional Source Comments Care Team (unrecognized sect ion and content) INFORMATION SOURCE (unrecogn ized section and content) DATE CREATED AUTHOR AUTHOR'S ORGANIZ ATION 05/20/2022 [facility] DATE CREATED AUTHOR AUTHOR'S ORGANIZ ATION 01/27/2023 [facility] Source Comments (unrecognize d section and content) In the event this informatio n is protected by the Federal Confidentiality of Alcohol and Drug Abuse Patient Records regulations: The Federal rules restrict any use of the information to criminally investigate or prosecute any alcohol or drug abuse patient.[facility] Reason for Visit (unrecogniz ed section and content) Referral ID Status Reason Start Date Expiration Date Visits Re quested Visits Authorized [id number] 1 1 Scheduled Active and Recently Administ ered Medications (unrecognized section and content) Continuous Medication Order 01/20/2023 01/21/2023 01/22/2023 lactated ringers iv infusion (CANCELED) 5-30 mL/hr, INTRAVENOUS, CONTINUOUS, Starting on Wed01/22/23 at 1230, Until Wed01/22/23 at 1526, Preprocedure 1132 (New Bag/Syring e/Bottle - Provider: Negra Morrison RN)1356 (Stopped - Provider: Sindy García APRN.CRNA - Comment: Switch to gravity)1357 (Restarted - Provider: Sindy García APRN.CRNA)1441 (Anesthesia Volume Adjustment - Provider: Sindy García APRN.CRNA)1526 (Due: Infusion Complete) PRN Medication Order 01/20/2023 01/21/2023 01/22/2023 bupivacaine 0.5 % injection (MARCAINE MDV) (CANCELED) X (OR/PROCEDURE) PRN, Starting on Wed01/22/23 at 1446, Until Wed01/22/23 at 1526, Intraprocedure 1446 (Canceled Entry - Provider: Srinath Stanley DPM)1447 (Given - Provider: Srinath Stanley DPM) dexAMETHasone sodium phosphate injection (DECADRON) (CANCELED) X (OR/PROCEDURE) PRN, Starting on Wed01/22/23 at 1454, Until Wed01/22/23 at 1526, Intraprocedure 1454 (Given - Provid er: Srinath Stanley DPM) HYDROcodone 5 mg - acetaminophen 325 mg tablet (NORCO) 1 tablet, ORAL, EVERY 6 HOURS NEEDED, Starting on Wed01/22/23 at 1523, Until 01/23/23 at 0303, Moderate Pain (4-6) - Enteral lidocaine 10 mg/mL (1 %) injection (XYLOCAINE) (CANCELED) X (OR/PROCEDURE) PRN, Starting on Wed01/22/23 at 1406, Until Wed01/22/23 at 1526, Intraprocedure 1406 (Given - Provid er: Srinath Stanley DPM - Comment: left lateral foot) FOR RECORDS PERTAINING TO PATIENTS WHO ARE OR HAVE BEEN ENROLLED IN A CHEMICAL DEPENDENCY/SUBSTANCEABUSE PROGRAM, SOME INFORMATION MAY BE OMITTED. This clinical summary was aggregated from multiple sources. Caution should be exercised in using it in the provision of clinical care. This summary normalizes information from multiple sources, and as a consequence, information in this document may materially change the coding, format and clinical context of patient data. In addition, data may be omitted in some cases. CLINICAL DECISIONS SHOULD BE BASED ON THE PRIMARY CLINICAL RECORDS. [employer] provides no warranty or guarantee of the accuracy or completeness of information in this document.
--- NOTE | 2023-04-29 20:18 | EX.ED.DYSGE1 ---
HPI History of Present Illness Chief Complaint: Abd Pain Detail of Chief Complaint: Syncope, vomiting, diarrhea, abdominal pain Informant: patient Narrative Narrative: Patient reports feeling sick today with abdominal pain, nausea, diarrhea. She reported became lightheaded and dizzy this evening and passed out. Patient denies any injury from falling. She felt like she had a fever at home but was not measured. She feels like she is chilling now. She does report some dysuria for the past couple of days. PFSH PFSH Medical History Endometriosis Home Medications hydrocodone-acetaminophen 5-325mg 5mg-325mg 1 tab PO Q6H PRN PRN Pain 3 days #10 TABLETS 04/29/23 [Rx Last Taken Unknown] ondansetron 4 mg disintegrating tablet 4 mg PO Q8H PRN PRN Nausea #10 tabs 04/29/23 [Rx Last Taken Unknown] sulfamethoxazole 800 mg-trimethoprim 160 mg tablet (Bactrim DS) 1 tab PO BID #6 tabs 04/29/23 [Rx Last Taken Unknown] Allergy/AdvReac Type Severity Reaction Status Date / Time No Known Allergies Allergy Verified 04/29/23 19:56 Surgical History History of appendectomy History of knee surgery History of thyroid surgery Hx of cholecystectomy Social History Smoking Status: Never smoker alcohol intake: never ROS ROS ED Constitutional Constitutional ED: Reports chills, fever(s) and subjective Eyes Eyes: Denies discharge from eye(s) ENT ENT ED: Denies discharge from eye(s), rhinorrhea or sore throat Cardiovascular Cardiovascular: Denies chest pain or palpitations Respiratory/Chest Respiratory/Chest: Denies cough or dyspnea Gastrointestinal Gastrointestinal: Reports abdominal pain, diarrhea, nausea and vomiting Genitourinary Genitourinary ED: Reports dysuria Musculoskeletal Musculoskeletal: Denies back pain or extremity pain Integumentary Denies Abrasions or rash Neurologic Neurologic: Reports weakness; Denies headache(s) Psychiatric Psychiatric: Denies anxiety or depression Allergic/Immunologic Allergic/Immunologic ED: Denies lip swelling or urticaria EXAM Physical Exam Const Vital Signs: 04/29/23 19:56 04/29/23 20:50 04/29/23 21:39 Temperature 97.4 F L Temperature Source Temporal Pulse Rate 82 73 83 Respiratory Rate 16 16 17 Blood Pressure 89/53 L 89/59 L 88/36 L Blood Pressure Mean 65 69 53 Pulse Ox 100 100 100 Oxygen Delivery Method Room Air Room Air 04/29/23 21:55 Temperature Temperature Source Pulse Rate 78 Respiratory Rate 16 Blood Pressure 99/60 Blood Pressure Mean 73 Pulse Ox 100 Oxygen Delivery Method Room Air Positive well nourished and well developed General Appearance ED: well developed HEENT Reports dry mucous membranes Mouth ED: Yes dry mucous membranes Mouth: dry mucous membranes Eyes EOMs intact bilaterally Chest Wall inspection of chest normal and palpation of chest normal Resp normal respiratory effort and clear to auscultation bilaterally Cardio regular rate and regular rhythm GI GI Narrative: Minimal tenderness in the epigastrium. No guarding or rebound. Hypoactive bowel sounds. Palpation: soft Extremity normal to inspection Neuro oriented x3 and no sensory deficits noted Motor Exam: strength 5/5 throughout Psych mental status grossly normal Skin no rashes or lesions noted MDM MDM MDM Narrative Medical decision making narrative: IV line established. Patient given IV fluid bolus for low blood pressure of 89/53. Patient given Zofran for nausea. Labwork obtained to evaluate for leukocytosis, anemia, and electrolyte derangement. Urinalysis obtained to evaluate for infection/hematuria. History & Record Review Discussion w/independent historian: Patient and Family Additional record(s) reviewed:: Prior inpatient record, Prior outpatient record, Prior ED visit and Prior labs Lab Data Attestation: I reviewed the patient's lab results. Labs: Laboratory Results - last 24 hr 04/29/23 04/29/23 20:20 20:49 WBC 12.2 H RBC 3.86 L Hgb 11.5 L Hct 35.3 L MCV 91.5 MCH 29.8 MCHC 32.6 RDW Std Deviation 42.8 RDW Coeff of Patrice 13.0 Plt Count 224 MPV 10.4 Immature Gran % (Auto) 0.300 Neut % (Auto) 78.3 H Lymph % (Auto) 15.0 L Guthrie % (Auto) 5.6 Eos % (Auto) 0.6 Baso % (Auto) 0.2 Absolute Neuts (auto) 9.5 H Absolute Lymphs (auto) 1.83 Nucleated RBC % 0 Sodium 138 Potassium 3.7 Chloride 105 Carbon Dioxide 29.0 Anion Gap 4 L BUN 18 Creatinine 0.81 Estim Creat Clear Calc 97.59 Est GFR (MDRD) Af Amer 102 Est GFR (MDRD) Non-Af 85 BUN/Creatinine Ratio 22.2 H Glucose 168 H Lactic Acid 1.7 Calcium 9.0 Total Bilirubin 0.40 Direct Bilirubin 0.12 AST 15 ALT 12 L Alkaline Phosphatase 40 L Total Protein 6.5 Albumin 3.8 Globulin 2.7 Lipase 31 Serum , Qual NEGATIVE Urine Color Yellow Urine Clarity Cloudy Urine pH 6.0 Ur Specific [place] 1.030 Urine Protein 100 H Urine Glucose (UA) Normal Urine Ketones 5 H Urine Occult Blood 50 H Urine Nitrite Positive H Urine Bilirubin 3 H Urine Urobilinogen 1 H Ur Leukocyte Esterase 25 H Urine RBC Cancelled Urine WBC Cancelled Ur Squamous Epith Cells Cancelled Ur Transition Epith Cell Cancelled Ur Renal Epithelial Cell Cancelled Calcium Oxalate Crystal Cancelled Uric Acid Crystals Cancelled Triple Phos Crystals Cancelled Other Crystals Cancelled Amorphous Sediment Cancelled Urine Bacteria Cancelled Hyaline Casts Cancelled Fine Granular Casts Cancelled Coarse Granular Casts Cancelled Waxy Casts Cancelled RBC Casts Cancelled WBC Casts Cancelled Urine Mucus Cancelled Urine Trichomonas Cancelled Urine Yeast Cancelled Radiography Diagnostic Testing: Clinical Impression(s) from Imaging Studies Abdomen/Pelvis CT 04/29/23 22:14 IMPRESSION: Large left adnexal cyst. Uterine fibroid. Moderate free fluid in the abdomen and pelvis. Electronically Signed: Graeme Marion MD at 23:50 EST Reading Location ID and State: [address] [place] [address] , Service support , EKG Initial EKG: Attestation: I personally reviewed and interpreted this EKG as follows: Interpretation: Sinus Rhythm (Sinus 86 with no acute ischemia.) Treatment and Re-Evaluation :: White blood cell count is elevated at 12.2 with 78% neutrophils. Hemoglobin slightly low at 11.5. Chemistry studies unremarkable other than a glucose of 168. LFTs unremarkable. Urinalysis is positive for nitrites. She is unable to provide a small sample and microscopic exam was not able to be performed. Lactic acid is normal at 1.7. After 2 L of IV fluid patient's systolic blood pressure is between 95 and 108. This appears to be her baseline when I look at prior visits. Patient was sent for CT scan of the abdomen and pelvis with IV contrast. CT reveals a large left adnexal cyst measuring 8.3 cm. There is moderate free fluid in the abdomen and pelvis. Test results are discussed with the patient. She tells me that she had a hysterectomy previously in [place]. She went to [place] for surgery secondary to endometriosis. She then had her right ovary removed at [facility]. I was able to find this record and [facility] and the surgery was on September 05, 2021. Plan was to undergo laparoscopic removal of right adnexal mass, however the procedure was converted to an open laparotomy with bilateral salpingectomy and right oophorectomy with removal of right adnexal mass. Pathology report indicates that this was a right fallopian tube that is dilated and a right ovary with a large cystic structure. Patient also had a pelvic ultrasound in May 2022. At that time her left ovary was normal and there was no evidence of pelvic mass or fluid collection. Patient has been seen by Dr. Cline through [place]. It sounds like she has not been seen by him for a couple years and patient would prefer to come here for her treatment if possible. She is referred to Dr. Finesse Leroy, on-call for no doc tonight. Patient and mother were both told it is important for very close follow-up as she does have a very large cyst with free fluid. She will be given prescription for analgesics, antiemetics, and antibiotics. Discharge Plan Triage Chief Complaint: Abd Pain ED Provider: Miley Thurman Dx/Rx/DC Orders Clinical Impression: UTI (urinary tract infection), Ovarian cyst, Syncope, Hypotension, Vomiting Instructions: UTIs Understanding, ED Low Blood Pressure, All Causes, ED Ovarian Cyst Prescriptions: New sulfamethoxazole-trimethoprim [Bactrim DS] 800-160 mg tablet 1 tab PO BID Qty: 6 0RF ondansetron 4 mg tablet,disintegrating 4 mg PO Q8H PRN PRN (Reason: Nausea) Qty: 10 0RF hydrocodone-acetaminophen 5-325 mg tablet 1 tab PO Q6H PRN PRN (Reason: Pain) 3 Days Qty: 10 0RF Primary Care Provider: Dick Valentine Referrals: Dick Valentine, DO [Primary Care Provider] - Sharifa Aguilera MD [Med Staff - Active Staff] - As soon as possible Disposition Disposition: Home, Self Care
[2023-04-29] MEDS: Ondansetron 4 MG/2 ML Vial IV (20:48)
[2023-04-29] MEDS: 0.9% Normal Saline (1000mL) 1,000 ML 1000 ML IV (20:48)
[2023-04-29 20:50] VITALS: BP 89/59; PULSE 73; RESP 16; O2SAT 100; BMI 25.6
[2023-04-29 20:51] LABS: Absolute Lymphocyte Count 1.83 X10^3/uL (0.83-4.51); Absolute Neutrophil Count 9.5 X10^3/uL (2.0-7.7); Basophil# 0.03 X10^3/uL; Basophil% 0.2 % (0-1); Eosinophil# 0.07 X10^3/uL; Eosinophils% 0.6 % (0-5); Hematocrit 35.3 % (37-47); Hemoglobin 11.5 g/dL (12.0-15.0); Lymphocyte # 1.83 X10^3/ul (0.83-4.51); Mean Corp Hgb Conc 32.6 g/dL (32-36); Mean Corpuscular Hgb 29.8 pg (27.0-32.0); Mean Corpuscular Volume 91.5 fL (81-99); Mean Platelet Vol. 10.4 fl (6.2-12.0); Monocyte# 0.68 X10^3/uL; Monocyte% 5.6 % (0-10); NRBC Flagged by Analyzer 0 % (0-5); Neutrophil # 9.53 X10^3/uL (2.7-7.7); Neutrophil % 78.3 % (47-70); Platelet Count 224 K/mm3 (150-450); RBC Distribution Width SD 42.8 fl (35.1-43.9); Red Blood Count 3.86 M/mm3 (4.2-5.4); White Blood Count 12.2 K/mm3 (4.4-11.0)
[2023-04-29 21:07] LABS: Internal QC Validated? YES +Cl - CLEAR BKGD; Pregnancy, Serum, hCG Quali. NEGATIVE Negative
[2023-04-29 21:09] LABS: Color, Urine Yellow (Yellow); Glucose, Dipstick Normal (Normal); Ketone-Dipstick 5 mg/dl (Negative); Leukocyte Esterase-Dipstick 25 /ul (Negative); Nitrite-Dipstick Positive (Negative); Occult Blood-Urine 50 /ul (Negative); Protein-Dipstick 100 mg/dl (Negative); Urine Bilirubin Dipstick 3 mg/dL (Negative); Urine Clarity Cloudy (Clear); Urine Urobilinogen 1 mg/dl (Normal)
[2023-04-29 21:12] LABS: AST(SGOT) 15 U/L (15-37); Alanine Aminotransfer ALT/SGPT 12 U/L (13-56); Albumin, Serum 3.8 g/dL (3.2-5.0); Alkaline Phosphatase 40 U/L (45-117); Anion Gap 4 (5-15); BUN 18 mg/dL (7-18); BUN/Creat Ratio 22.2 RATIO (10-20); Bilirubin, Direct 0.12 mg/dL (0.00-0.30); Chloride 105 mmol/L (98-107); Creatinine, Serum 0.81 mg/dL (0.55-1.02); EST Glomerular Filtration Rate 85 mL/min (>60); Est Glom Filt Rate - Afr Amer 102 mL/min (>60); Estimated Creatinine Clearance 97.59 ml/min; Globulin 2.7 g/dL (2.2-4.2); Glucose 168 mg/dL (74-106); Lipase 31 U/L (13-75); Potassium 3.7 mmol/L (3.5-5.1); Protein, Total 6.5 g/dL (6.4-8.2); Sodium Level 138 mmol/L (136-145)
[2023-04-29 21:21] LABS: Lactic Acid 1.7 mmol/L (0.4-1.9)
[2023-04-29 21:39] VITALS: BP 88/36; PULSE 83; RESP 17; O2SAT 100
[2023-04-29 21:55] VITALS: BP 99/60; PULSE 78; RESP 16; O2SAT 100
[2023-04-29] MEDS: 0.9% Normal Saline (1000mL) 1,000 ML 999 ML IV (22:12)
--- NOTE | 2023-04-29 22:14 | CT_ITS ---
STUDY: CT ABDOMEN AND PELVIS WITH CONTRAST REASON FOR EXAM: Female, 37 years old. Abdominal pain RADIATION DOSAGE (If Supplied By Facility): CTDIvol = ( 28.24 ) mGy, DLP = ( 844.54 ) mGycm TECHNIQUE: Transaxial images were obtained from the dome of the diaphragm to the symphysis pubis without oral contrast. 100 mL Isovue-370 was administered. Sagittal and coronal images were reconstructed. Individualized dose optimization techniques were used for this CT. COMPARISON: November 15, 2020 FINDINGS: The visualized lung bases are unremarkable. The visualized portions of the heart are within normal limits. Normal liver. There are surgical clips in the gallbladder fossa consistent with a prior cholecystectomy. Normal spleen. Normal pancreas. Normal bilateral adrenal glands. Normal right kidney. Normal left kidney. Normal visualized stomach. Normal small intestine. Normal colon. There is non-visualization of the appendix. Normal abdominal aorta. Normal inferior vena cava. Normal retroperitoneum. Normal urinary bladder. The uterus is lobular with probable fibroid. There is 8.3 cm left adnexal cysts. There is moderate free fluid in the abdomen and pelvis. Normal abdominal wall. Normal osseous structures. CT/Abdomen/Pelvis W IV Cont ONLY IMPRESSION: Large left adnexal cyst. Uterine fibroid. Moderate free fluid in the abdomen and pelvis. Electronically Signed: Graeme Marion MD at 23:50 EST ,
[2023-04-29] MEDS: Ketorolac 15 MG/ML Vial IV (22:37)
[2023-04-30 00:01] VITALS: BP 95/59; PULSE 88; RESP 16; O2SAT 100
[2023-04-30] MEDS: HYDROcodone Bitartrate/Apap 5/325 Tablet PO (00:10)
[2023-04-30] MEDS: Smz/Tmp Ds Tablet 1 TABLET PO (00:10)
[2023-04-30 00:16] VITALS: BP 97/59; PULSE 87; RESP 16; O2SAT 97
== END 2023-04-30 00:17 | disposition home or self-care (01) ==
PROVIDERS: Emergency Provider Emergency Medicine; PCP Family Medicine; Visit Provider Emergency Medicine
DX: N39.0 Urinary tract infection, site not specified (principal); I95.9 Hypotension, unspecified; R11.2 Nausea with vomiting, unspecified; R19.7 Diarrhea, unspecified; R55 Syncope and collapse; N83.209 Unspecified ovarian cyst, unspecified side
CPT/HCPCS: 74177; 80048; 80076; 81002; 83605; 83690; 84703; 85025; 87040; 93005; 96361; 96374; 96375; 99285; J7030; Q9967; A4216; J2405

== ENCOUNTER → 2023-05-17 | Outpatient (CLI) | payer SELFPAY, OTHER ==
--- NOTE | 2023-05-17 13:05 | MRI_ITS ---
EXAM: MR PELVIS WITHOUT AND WITH INTRAVENOUS CONTRAST CLINICAL INDICATION: pelvic mass TECHNIQUE: Multiplanar and multisequence MR images of the pelvis without and with intravenous contrast. CONTRAST: IV 14ML CLARISCAN COMPARISON: CT abdomen and pelvis 04/29/2023 FINDINGS: INTRAPERITONEAL SPACE: Peritoneal fluid noted along the left adnexa. BLADDER: Normal. OVARIES: Left ovary measures 5.0 x 5.0 x 3.1 cm. 3.6 and 2.8 cm cysts are noted within the ovary as well as multiple subcentimeter peripheral follicles. UTERUS/CERVIX: Uterus and right ovary are surgically absent. Endometrial stripe is normal in thickness and appearance. BONES/JOINTS: Normal. SOFT TISSUES: Normal. No pelvic wall hernia. LYMPH NODES: Normal. No enlarged lymph nodes. OTHER FINDINGS: Previously noted amorphous solid mass on the CT study is no longer present suggestive of resolved hemoperitoneum. MRI/Pelvis W/WO Contrast IMPRESSION: Cystic changes of left ovary which are likely physiologic in nature. Electronically Signed: Abdirizak Mcmillan MD at 15:13 EST ,
== END | disposition home or self-care (01) ==
LOC: MRI 13:02
PROVIDERS: PCP Family Medicine; Referring Provider Obstetrics & Gynecology; Visit Provider Obstetrics & Gynecology
DX: R19.00 Intra-abdominal and pelvic swelling, mass and lump, unspecified site (principal)
CPT/HCPCS: 72197; A9575

== ENCOUNTER 2023-06-15 08:16 | Day surgery (SDC) | payer SELFPAY, OTHER ==
[2023-06-14 10:22] LABS: International Normalized Ratio 1.1; Partial Thromboplast Time 31.8 Seconds (24.1-36.2); Prothrombin Time (Protime)PT. 14.3 SECONDS (11.7-14.9)
[2023-06-15 08:36] LABS: Internal QC Validated? YES +Cl - CLEAR BKGD; Pregnancy, Urine Negative Negative; Record Kit Lot#,Urine Preg 718086
[2023-06-15] MEDS: Lactated Ringers 1,000 ML 15 ML IV (08:43)
[2023-06-15 08:44] VITALS: BP 92/62; PULSE 76; RESP 18; TEMP 37; O2SAT 100; BMI 25.9
--- NOTE | 2023-06-15 09:52 | HP.PCM_ITS ---
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 Is patient in pain?: No Allergies acetaminophen [From [place]] Adverse Reaction (Mild, Verified 06/14/23 08:50) dizzinesshydrocodone [From [place]] Adverse Reaction (Mild, Verified 06/14/23 08:50) dizziness Medications acetaminophen 325 mg tablet (Tylenol) 325 mg PO Q6H PRN pain 05/10/23 [History Confirmed 06/14/23] oxycodone 5 mg capsule 5 mg PO Q6H PRN pain 3 days #18 caps 06/14/23 [Rx Confirmed 06/14/23] Post menopausal: No Patient : No : No PFSH Medical History Abdominal pain, acute Acute sinusitis Acute sinusitis, unspecified Adnexal cyst Anxiety Back pain Blackout Bronchitis Constipation Dysuria Easy bruising Heartburn Leg cramps Migraine headache Non-smoker URI (upper respiratory infection) Uterine fibroid Wears glasses Wears partial dentures Surgical History History of appendectomy Hx of cholecystectomy S/P foot surgery S/P hysterectomy S/P partial thyroidectomy Family History Mother Cancer Social History Smoking Status: Never smoker alcohol intake: never substance use type: does not use additional social history: Single HPI LSO Details: PORSHA CARPENTER is a 37 year old who presents for a preoperative exam. She has persistent pelvic pain and found to have an 8.3 cm adnexal cyst on ct in ER last week. CT also showed a lobular uterus consistent with a fibroid uterus. Patient states that in 2020 in [place] she had a complete hysterectomy. She then had a surgery at [facility] to remove a large ovarian cyst. She has a midline incision. Most recent MRI shows Left ovary measures 5.0 x 5.0 x 3.1 cm. 3.6 and 2.8 cm cysts are noted within the ovary as well as multiple subcentimeter peripheral follicles. UTERUS/CERVIX: Uterus and right ovary are surgically absent. Endometrial stripe is normal in thickness and appearance. BONES/JOINTS: Normal. SOFT TISSUES: Normal. No pelvic wall hernia. LYMPH NODES: Normal. No enlarged lymph nodes. OTHER FINDINGS: Previously noted amorphous solid mass on the CT study is no longer present suggestive of resolved hemoperitoneum. History 0 Elective abortions Hx Para Spontaneous abortions Hx # Term Pregnancies Ectopic pregnancies Hx # Pregnancies Multiple births # of living children ROS Const ROS Unobtainable: All systems reviewed & are unremarkable except as noted in H Resp Resp: Reports system reviewed and no additional complaints, except as documented; Denies cough GI GI: Reports as per HPI Psych Psych: Reports system reviewed and no additional complaints, except as documented Exam Const General: cooperative, healthy appearing, comfortable and no acute distress Resp Effort & Inspection: normal respiratory effort Skin General: no rashes or lesions noted Psych Appearance: grossly normal Speech and Movement: speech and movement normal Coding Level of Care Code Off vis,est,level 4 Diagnoses Pelvic mass R19.00 Assessment and Plan Assessment and Plan (1) Pelvic mass: Status: Acute Plan: After discussing the patient's diagnosis and treatment plan options, patient wishes to proceed with surgical management. I have discussed with the patient the risks, benefits, and alternatives of the procedure which include but are not limited to risks of anesthesia, bleeding, infection, possible damage to bowel, bladder, or surrounding vasculature which could lead to additional surgery to evaluate any complications. Patient agrees to procedure and wishes to proceed. ACOG/uptodate references given for additional information regarding procedure. plan for laparoscopic LSO. If upon entry there is a lot of scar tissue, I will utilize the robotic device or even plan to open, or abort the procedure. Patient understands all of these possibilities. Medications: New oxycodone 5 mg PO Q6H 3 days PRN 18 caps 0RF pain R19.00 - Intra-abdominal and pelvic swelling, mass and lump, unspecified site
--- NOTE | 2023-06-15 09:54 | DCINST_ITS ---
Discharge Instructions Diet Discharge Diet: No restrictions Activity Discharge Activity: Return to Normal Activity, May Not Drive (for two weeks or while taking narcotic pain medications.), May Shower and May Take a Tub Bath (in 7 days) May resume sexual activity in: 1 week Weight Bearing Status: Full weight bearing Dressing / Incision Call your doctor if you observe: Using more than 1 pad per hour, Shortness of breath, Chest pain and Uncontrolled pain Suture Line Care: Avoid Pulling/Pushing and Avoid Pinching/Bending Remove Dressing in: 1 week (if present) Cleanse incision/area with: Soap & Water and Keep Dressing Clean & Dry Follow Up Care Please Follow Up With: Miley Bradford DO When: Call to make an appointment with your doctor for a follow up incision check in 1-2 weeks. Test Results: Test results from this visit will be discussed in further detail at your follow- up appointment, if applicable. Discharge Plan Admission Attending Provider: Miley Bradford Primary Care Provider: Dick Valentine Consulting Providers: Jonathan Graham Discharge Orders/Prescriptions Prescriptions: New ibuprofen 800 mg tablet 800 mg PO Q8H PRN (Reason: pain) Qty: 30 0RF Continued acetaminophen [Tylenol] 325 mg tablet 325 mg PO Q6H PRN (Reason: pain) oxycodone 5 mg capsule 5 mg PO Q6H PRN (Reason: pain) 3 Days Qty: 18 0RF Referrals / Follow Up: Dick Valentine DO [Primary Care Provider] - Disposition Disposition (needs filled in before D/C Order can be placed): Home, Self Care
--- NOTE | 2023-06-15 10:10 | OV_PTH ---
PATHOLOGY RESULTS PATIENT: PORSHA CARPENTER LOC: [facility] U#:[id number] AGE/SX: 37/F ROOM: RE06/15/[address]: Dr. Miley Bradford DO : 1985 BED: DIS: 06/15/2023 SPEC #: [id number] RECD: 06/15/23 12:02 STATUS: LILIA WEEMS #: [id number] BELINDA: 06/15/23 10:[address]: Miley Bradford DEPT: SURGICAL PATHOLOGY RECD BY: Allison Coley ENTERED: 06/16/23 07:43 SP TYPE: OVARY OTHR DR: MD Dr. Dick Shelby DO Tissues: Left ovary Procedures: Surgery Specimen Level IV HEADER OPERATION: Lap robotic left oophorectomy PRE-OP DIAGNOSIS: Pelvic mass TISSUE SUBMITTED: Left ovary MICROSCOPIC DIAGNOSIS Left ovary, oophorectomy: Inflamed and hemorrhagic cyst contents. Physiologic corpus luteum and follicular cysts. See comment. SJ:maryjane 06/16/2023 COMMENT Sections of hemorrhagic and orange cyst contents predominantly consists of inflamed fibrous tissue with old hemorrhage and reactive changes, may represent contents for endometrioma. No obvious endometrial tissue is identified. Correlation with clinical findings and appropriate follow up are necessary. Case has been reviewed in consultation with Dr. Dhillon who concurs with the above diagnosis. IDC:JOSE MICROSCOPIC DESCRIPTION Slides are reviewed. GROSS DESCRIPTION Received in fixative is one container labeled with the patient's name and designated left ovary. The specimen consists of an ovary which is partly disrupted and adjacent hemorrhagic orange tissue measuring 6.0 x 3.2 x 2.5 cm and weighing 20.6 gm. The external surface is smooth. Adjacent hemorrhagic orange tissue may represent ruptured cyst contents and measures 2.5 x 3.0 x 1.5 cm. The external surface, other than the disrupted cyst contents, is inked black and reveals multiple cysts filled with clear fluid. The largest cyst measures 1.7 cm in greatest dimension. A corpus luteum is also noted measuring 2.0 cm in greatest dimension. Gas Plumbing Inspector sections are submitted in six cassettes as follows: 1 & 2 - ruptured cyst contents, 3-6 - ovary. / VICKY:maryjane 06/15/2023 TC:5 CPT: 10318
[2023-06-15] MEDS: Bupivacaine 0.25% 30 ML Vial (11:33)
[2023-06-15 11:51] VITALS: BP 92/62; BP 95/54; PULSE 106; RESP 16; TEMP 36.8; O2SAT 100
[2023-06-15 11:55] VITALS: BP 81/42; BP 92/62; PULSE 99; RESP 16; O2SAT 99
[2023-06-15 12:00] VITALS: BP 86/56; BP 92/62; PULSE 89; RESP 16; O2SAT 100
--- NOTE | 2023-06-15 16:19 | OP.PCM_ITS ---
Problems Associated Problem List Diagnoses (1) Pelvic mass: (2) Adnexal cyst: Report of Operation Date of Procedure: 06/15/23 Pre-Operative Diagnosis: endometrial mass, history of extensive pelvic surgery Post-Operative Diagnosis: endometrial mass, history of extensive pelvic surgery Surgery/Procedure Performed:: robotic left salpingo-oophorectomy and lysis of adhesions Description of Surgical Findings:: adhesions of the left ovary to the right side of the pelvis and bowel. Evidence of endometriosis and chocolate cyst of the left ovary Surgeon: Miley Bradford acute care clinical nurse specialist: Daniele Matthews Type of Anesthesia: General Specimen's removed: left ovary and fallopian tuve Drains: none Estimated Blood Loss (mL): 10cc Description of Procedure: The patient was brought to the operating room and general anesthesia was achieved. She was placed in a dorsal supine position and preped and draped in the usual sterile fashion. A sponge stick was placed in the vagina and a Minaya catheter was placed in the urethra. Gloves were changed and approximately 23 cm above the pubic symphysis in the midline, and after Marcaine injection, a 8 mm incision was made. An 8 mm trocar was inserted through the laparoscope, then inserted into the abdomen under direct visualization using the laparoscope. Good abdominal placement was noted and no complications were appreciated. An air seal device was utilized to create pneumoperitoneum. At 12 cm lateral to the midline on the left and right sides 8 mm accessory ports were placed. Next a left lower quadrant 8 mm funeral home assistant port site was placed for the air seal device . The patient was placed in steep Trendelenburg position. The robot was docked. Using the bipolar cautery with scissors and a pro-grasp, the ovary was grasped and fine adhesions from the bowel were dissected off without difficulty. The left ovary was attached with fine adhesions to the right side of the pelvis. Connecting the ovary to the right side was a 5 cm endometrioma. Fine adhesions were removed from the endometrioma. During this time the cyst broke open and cholate like material oozed out. Irrigation was performed. The left ovary was again tented up using the pro-grasp device and the IP ligament was cauterized and cut using the vessel sealer device. The specimen was placed in a 5 mm endocatch bag and brought to the level of the skin. A April clamp was used to separate the tissue enough to remove the ovary. Excellent hemostasis was noted. The robot was undocked and the trocars were removed. The trocar sites were removed using a 4-0 Monocryl subcuticular stitch. The sponge stick was removed from the vagina. The minaya catheter was also removed. The patient tolerated the procedure well. Sponge, lap, and needle counts were correct x 2. Admit VTE Documentation VTE Present on Admission: No VTE Mechan Device Prophylaxis: SCD's VTE Pharm Prophylaxis ordered?: No Multi Select Codes Urinary/Genital Urinary/Genital CPT Codes: 36756 Lysis of adhesions, laproscopic [place] 90754 Lapr oscopic BS/O
== END 2023-06-15 14:22 | disposition home or self-care (01) ==
LOC: SDC 08:16 → AC 08:17
PROVIDERS: Anesthesiology; PCP Family Medicine; Referring Provider Obstetrics & Gynecology; Visit Provider Obstetrics & Gynecology
PROC: (CPT 58661; principal; 2023-06-15 09:55)
DX: N80.102 Endometriosis of left ovary, unspecified depth (principal); N85.8 Other specified noninflammatory disorders of uterus; Z90.49 Acquired absence of other specified parts of digestive tract; Z90.710 Acquired absence of both cervix and uterus; E89.0 Postprocedural hypothyroidism; R19.00 Intra-abdominal and pelvic swelling, mass and lump, unspecified site; N80.9 Endometriosis, unspecified; N73.6 Female pelvic peritoneal adhesions (postinfective)
CPT/HCPCS: 58661; 58660; 00840; 36415; 81025; 85610; 85730; 86850; 86900; 86901; 88305; J7120; J2405

== ENCOUNTER → 2024-09-01 | Outpatient (CLI) | payer OTHER, SELFPAY ==
[2024-09-01 16:29] LABS: Absolute Lymphocyte Count 1.17 X10^3/uL (0.83-4.51); Absolute Neutrophil Count 5.6 X10^3/uL (2.0-7.7); Basophil# 0.04 X10^3/uL; Basophil% 0.5 % (0-1); Eosinophil# 0.12 X10^3/uL; Eosinophils% 1.6 % (0-5); Hematocrit 36.6 % (37-47); Hemoglobin 11.9 g/dL (12.0-15.0); Lymphocyte # 1.17 X10^3/ul (0.83-4.51); Lymphocyte % 15.9 % (19-41); Mean Corp Hgb Conc 32.5 g/dL (32-36); Mean Corpuscular Hgb 30.2 pg (27.0-32.0); Mean Corpuscular Volume 92.9 fL (81-99); Mean Platelet Vol. 9.9 fl (6.2-12.0); Monocyte# 0.42 X10^3/uL; Monocyte% 5.7 % (0-10); NRBC Flagged by Analyzer 0 % (0-5); Neutrophil # 5.57 X10^3/uL (2.7-7.7); Platelet Count 174 K/mm3 (150-450); RBC Distribution Width CV 12.7 % (11.6-14.6); RBC Distribution Width SD 43.8 fl (35.1-43.9); Red Blood Count 3.94 M/mm3 (4.2-5.4); White Blood Count 7.3 K/mm3 (4.4-11.0)
[2024-09-01 17:17] LABS: ALB/GLOB Ratio 2.1 RATIO (0.9-2.4); AST(SGOT) 23 U/L (<=31); Alanine Aminotransfer ALT/SGPT 9 U/L (<=34); Albumin, Serum 4.3 g/dL (3.5-5.0); Alkaline Phosphatase 65 U/L (35-104); Anion Gap 10 (5-15); BUN 14 mg/dL (4-19); BUN/Creat Ratio 21.6 RATIO (10-20); Calcium,Total 8.7 mg/dL (7.6-11.0); Carbon Dioxide 27.5 mmol/L (21.0-32.0); Chloride 101 mmol/L (98-108); Creatinine, Serum 0.66 mg/dL (0.70-1.20); EST Glomerular Filtration Rate 116 (>60); Globulin 2.1 g/dL (2.2-4.2); Glucose 111 mg/dL (70-99); Protein, Total 6.5 g/dL (5.9-8.4); Sodium Level 138 mmol/L (133-145); Total Bilirubin 0.16 mg/dL (0.00-1.30)
[2024-09-04 16:08] LABS: EBV Acute VCA IgM < 36.0 U/mL (0.0-35.9)
== END | disposition home or self-care (01) ==
LOC: LAB 15:53
PROVIDERS: PCP Family Medicine; Referring Provider Student in an Organized Health Care Education/Training Program; Visit Provider Student in an Organized Health Care Education/Training Program
DX: R10.9 Unspecified abdominal pain (principal)
CPT/HCPCS: 36415; 80053; 85025; 86664; 86665

== ENCOUNTER 2024-10-20 10:02 | Day surgery (SDC) | payer SELFPAY, OTHER ==
[2024-10-20] VITALS (8 sets, daily range): BP systolic 89–101; BP diastolic 55–69; PULSE 58–79; RESP 16–18; TEMP 36.1–36.7; O2SAT 97–100; BMI 23.0
[2024-10-20] MEDS: Lactated Ringers 1,000 ML 15 ML IV (10:41)
--- NOTE | 2024-10-20 11:11 | PCM.HP.STD ---
HPI - General General Date of Admission: 10/20/24 Date of Service: 10/20/24 HPI Narrative VIRGIE CARPENTER, is a 38 F who presents with the chief Complaint: epigastric pain [facility] 08.03.24 with abdominal pain x7 days CT abd/pelvis .04.29; without acute abnormality OV 09.01.24 Pt with abd pain X2 weeks. Pain is intermittent and not daily. When she does get the abd pain it will last for a few hours. She has a hx of hiatal hernia and had it repaired about 4 years ago. This pain feels similar to when she had a hiatal hernia. Pain is worse with greasy foods. She has constipation at baseline and takes laxatives as needed. Pt wonders if her symptoms are related to a viral infection mono. She denies n/v, diarrhea or blood in her stool. [facility] Medical History Anemia History of hiatal hernia Depression Hormone deficiency History of frequent headaches Carpal tunnel syndrome History of endometriosis Chocolate cyst of ovary History of ovarian cyst Wears glasses Wears partial dentures Anxiety Easy bruising Back pain Migraine headache Blackout Constipation Heartburn Non-smoker Leg cramps Adnexal cyst Dysuria Acute sinusitis Uterine fibroid Abdominal pain, acute Acute sinusitis, unspecified URI (upper respiratory infection) Bronchitis Home Medications ?Medication ?Instructions ?Recorded ?Last Taken ?Type NK 10/20/24 Unknown History Allergy/AdvReac Type Severity Reaction Status Date / Time acetaminophen (From [place]) AdvReac Mild dizziness Verified 10/20/24 10:34 hydrocodone (From [place]) AdvReac Mild dizziness Verified 10/20/24 10:34 Family History Mother Cancer Surgical History History of left salpingo-oophorectomy S/P hysterectomy S/P foot surgery S/P partial thyroidectomy Hx of cholecystectomy History of appendectomy Social History Smoking Status: Never smoker alcohol intake: never substance use type: does not use additional social history: Single ROS Constitutional Constitutional: Denies fatigue, fever(s), poor appetite, weight gain or weight loss Gastrointestinal Gastrointestinal: Denies belching, bloating, change in bowel habits, change in stool character, chewing difficulty, coffee ground emesis, constipation, cramping, diarrhea, dyspepsia, dysphagia, early satiety, excessive flatus, fecal incontinence, heartburn, hematemesis, hematochezia, hemorrhoids, loose stools, melena, nausea, odynophagia, rectal bleeding, tenesmus, vomiting or weight changes Vital Signs Vital Signs Vital Signs: 10/20/24 10:35 10/20/24 10:35 Temperature 97.4 F L Temperature Source Temporal Pulse Rate 58 L Respiratory Rate 18 Respiratory Pattern Normal Blood Pressure 101/68 Blood Pressure Mean 79 Blood Pressure Source Monitor Blood Pressure Position Semi-Fowlers Blood Pressure Location Right Arm Pulse Ox 100 Oxygen Delivery Method Room Air Weight Weight: 138 lb 7.205 oz Body Mass Index (BMI) 23.0 Assessment & Plan Assessment/Plan (1) Abdominal pain: PLAN: Assessment and Plan (1) Abdominal pain: Status: Acute Plan: Virgie is a 38 yo female pt here today for evaluation of epigastric pain x 2 weeks. Pt having intermittent abd pain every few days that is achy and lasting a few hours. Pain is worse with certain foods. She is s/p hiatal hernia repeat about 4 years ago. She feels this pain is similar to when she had the hiatal hernia. I have recommended she start a PPI and undergo EGD to ensure the wrap is still intact. She declines a PPI at this time and would prefer to find out why she is having the pain first. I ordered blood work to rule out infection. She will be scheduled for an EGD. She may cancel if her symptoms improve. -Recommend PPI -EGD -CBC and CMP -f/u after procedure Orders: Orders CBC W/Diff, Automated Today R10.9 - Unspecified abdominal pain EBV Acute Prof IgG / IgM Today R10.9 - Unspecified abdominal pain Comprehensive Metabolic Profil Today R10.9 - Unspecified abdominal pain
--- NOTE | 2024-10-20 11:15 | EGD_PTH ---
PATIENT: PORSHA CARPENTER LOC: [facility] U#:[id number] AGE/SX: 38/F ROOM: RE10/20/[address]: Dr. Christiano Lara DO : 1985 BED: DIS: 10/20/2024 SPEC #: [id number] RECD: 10/20/24 13:09 STATUS: LILIA FAUSTINA #: [id number] BELINDA: 10/20/24 11:[address]: Christiano Lara DEPT: SURGICAL PATHOLOGY RECD BY: Vincent Emanuel ENTERED: 10/23/24 11:10 SP TYPE: EGD BIOPSY SHERYL DR: Roopa Wilson, SOURCING COORDINATOR-C Tissues: A - Esophagus, NOS Procedures: Surgery Specimen Level IV HEADER OPERATION: EGD with biopsy PRE-OP DIAGNOSIS: Abdominal pain TISSUE SUBMITTED: A- Distal esophagus biopsy MICROSCOPIC DIAGNOSIS A. Distal esophagus, biopsy: * Columnar mucosa with chronic inflammation. * Negative for intestinal metaplasia, dysplasia or malignancy. MICROSCOPIC DESCRIPTION Slides are reviewed. GROSS DESCRIPTION A. Received in fixative is one container labeled with the patient's name and designated Distal esophagus biopsy. The specimen consists of two irregular fragments of light moran soft tissue that in aggregate measure 0.3 and 0.4 cm. The specimen is totally submitted in one cassette. NCBillie 10/23/2024 CPT:58983
--- NOTE | 2024-10-20 11:22 | PCM.PRE.AN2 ---
ASA Classification* ASA Classification ASA Classification: 2 Assessment & Plan Anesthesia* Anesthesia Assessment Anesthesia Assessment: Discussed sedation and/or anesthesia options, risks, benefits, and alternatives with patient/parents/legal guardian/POA. Questions invited. The patient/parents/legal guardian/POA seems to understand and agrees to proceed with anesthesia plan. Reviewed the physical assessment, medical history, allergy history and patient home medications list prior to surgery/procedure/anesthetic and documented any changes. Performed airway and anesthesia risk assessments. Anesthesia Type Anesthesia Type: MAC History Source History Obtained from:: Patient and Chart Anesthesia Focused Assessment* Temperature: 97.4 F Pulse Rate: 58 Blood Pressure: 101/68 Respiratory Rate: 18 Pulse Ox: 100 Oxygen Delivery Method: Room Air Airway Assessment Mouth opens: >3 cm Mallampati Score: II Teeth Condition: Partial (Patient has an upper partial. He will come out.) Neck Range of motion (ROM): Limited ROM (Slight decrease in extension) Labs Anesthesia Preop lab: CBC WBC 7.3 K/mm3 (4.4-11.0) 09/01/24 15:55 09/01/24 RBC 3.94 M/mm3 (4.2-5.4) L 09/01/24 15:55 09/01/24 Hgb 11.9 g/dL (12.0-15.0) L 09/01/24 15:55 09/01/24 Hct 36.6 % (37-47) L 09/01/24 15:55 09/01/24 Plt Count 174 K/mm3 (150-450) 09/01/24 15:55 09/01/24 CHEMISTRY Potassium 4.0 mmol/L (3.3-5.1) 09/01/24 15:55 09/01/24 Sodium 138 mmol/L (133-145) 09/01/24 15:55 09/01/24 BUN 14 mg/dL (4-19) 09/01/24 15:55 09/01/24 Creatinine 0.66 mg/dL (0.70-1.20) L 09/01/24 15:55 09/01/24 Glucose 111 mg/dL (70-99) H 09/01/24 15:55 09/01/24 COAG PT 14.3 SECONDS (11.7-14.9) 06/14/23 09:37 06/14/23 Urine Test Negative Negative 06/15/23 08:25 06/15/23 Tst Clinic Negative 11/20/22 13:25 11/20/22 Pre-Assessment Diagnosis/Proposed Procedure Planned Operative Procedure(s): EGD Anesthesia History Anesthesia History - behavioral medical director: Anesthesia History - behavioral medical director Hx Hospitalization No 10/18/24 15:40 Any Problems With Anesthesia No 10/18/24 15:40 Cholinesterase deficiency No 10/18/24 15:40 You/Your Family Experience No 10/18/24 15:40 fever (hyperthermia) with Relationship Recent Exposure to Contagious No 10/20/24 10:35 Disease Does patient have nerve No 10/18/24 15:40 stimulator Patient instructed to have device shut off --Does patient have Pacemaker No 10/20/24 10:35 or ICD? When Was Last Pacemaker Check QUESTION #4 FULL TEXT: You/Your Family Experience fever (hyperthermia) with Anesthesia Last Oral Intake Last Oral intake: Last Oral Intake NPO since 23:30 10/20/24 10:35 Meds taken in AM with sips of No 10/20/24 10:35 water? Meds patient instructed to take am of surgery PONV PONV - behavioral medical director: PONV - behavioral medical director Female Yes 10/18/24 15:40 HX of Motion Sickness No 10/18/24 15:40 HX of N/V After Surgery No 10/18/24 15:40 Non-Smoker Yes 10/18/24 15:40 Duration of Surgery greater No 10/18/24 15:40 than 60 minutes Number of Risk Factors 2 10/18/24 15:40 PONV Score Moderate Risk 10/18/24 15:40 Height & Weight Height & Weight: Anesthesia: Height & Weight Height 5 ft 5 in 10/20/24 10:35 Weight: 62.8 kg 10/20/24 10:35 Body Mass Index (BMI) 23.0 10/20/24 10:35 Respiratory Assessment Respiratory Assessment - behavioral medical director: Respiratory Tract Infection Hx - behavioral medical director Hx Respiratory Tract Infection No 10/18/24 15:40 STOP Sleep Apnea STOP Sleep Apnea - behavioral medical director: STOP Sleep Apnea - behavioral medical director Hx Hypertension No 10/18/24 15:40 Hx Sleep Apnea No 10/18/24 15:40 CPAP BIPAP Do you snore loudly (louder No 10/18/24 15:40 than talking or can be heard Do you often feel tired/ No 10/18/24 15:40 fatigued/ sleepy during daytime? Has anyone observed you stop No 10/18/24 15:40 breathing during sleep? STOP Results Negative 10/18/24 15:40 QUESTION #5 FULL TEXT : Do you snore loudly (louder than talking or can be heard through closed doors)? Tobacco Use History Tobacco Use History - behavioral medical director: Tobacco Use History - behavioral medical director Tobacco Use Smoking Status Never smoker 10/18/24 15:40 Hx Tobacco Use No 10/18/24 15:40 Years Smoking Packs Smoked per Day Smoking Cessation Date was within the last 15 years Hx Smoking Cessation Date Hx Smoking Cessation Counseling Hematologic Medial History Hematologic Hx - behavioral medical director: Hematologic Medical Hx - gas tender Hx of Blood Transfusion No 10/18/24 15:40 Hx of Transfusion in last 3 No 10/18/24 15:40 Months Date of Last Transfusion (if within last 3 months) Ever experience any problems No 10/18/24 15:40 with transfusion(s)? Specify any problems Hx of Preganancy in last 3 No 10/18/24 15:40 Months Nurse Filling Out Transfusion [facility] 10/18/24 15:40 & Questions: Date: 10/18/24 10/18/24 15:40 Time: 15:45 10/18/24 15:40 Patient unable to answer at this time (ie. confused, unrespo /Reproduction History /Reproductive History - behavioral medical director: /Reproductive Hx- behavioral medical director Hx Now No 10/18/24 15:40 Gestational Age (in weeks): EDC: Hx Hx Para Hx Section SAB No 10/18/24 15:40 Active Medications Active Medications: Current Medications Generic Name Dose Route Start Last Admin Trade Name Freq PRN Reason Stop Dose Admin Lactated Ringer's 1,000 mls @ 15 mls/hr 10/20/24 10:15 10/20/24 10:41 IV 15 mls/hr .Q48H TEOFILO Administration PFSH Medical History Anemia History of hiatal hernia Depression Hormone deficiency History of frequent headaches Carpal tunnel syndrome History of endometriosis Chocolate cyst of ovary History of ovarian cyst Wears glasses Wears partial dentures Anxiety Easy bruising Back pain Migraine headache Blackout Constipation Heartburn Non-smoker Leg cramps Adnexal cyst Dysuria Acute sinusitis Uterine fibroid Abdominal pain, acute Acute sinusitis, unspecified URI (upper respiratory infection) Bronchitis Home Medications ?Medication ?Instructions ?Recorded ?Last Taken ?Type NK 10/20/24 Unknown History Allergy/AdvReac Type Severity Reaction Status Date / Time hydrocodone (From [place]) AdvReac Mild dizziness Verified 10/20/24 10:34 Family History Mother Cancer Surgical History History of left salpingo-oophorectomy S/P hysterectomy S/P foot surgery S/P partial thyroidectomy Hx of cholecystectomy History of appendectomy Social History Smoking Status: Never smoker alcohol intake: never substance use type: does not use additional social history: Single Review of Systems (Anesthesia) ROS Narrative System reviewed and no additional complaints, except as documented.
--- NOTE | 2024-10-20 12:19 | PCM.POST.ANE ---
Anesthesia: Postop Eval I Current Vital Signs Temperature: 97.8 F Pulse Rate: 79 Blood Pressure: 95/69 Respiratory Rate: 18 Pulse Ox: 99 Oxygen Delivery Method: Room Air Assessment Airway patent: Yes Spontaneous unlabored respirations: Yes Mental status: Awake and Calm nausea: No Vomiting: No Anesthesia Complication: No Fluid Hydration Crystalloid volume administer (ml): 300 Total IV fluid infused: 300 Progress Note Anesthesia document: Postop Eval 1 completed: Yes
--- NOTE | 2024-10-20 12:23 | OP.EGD_ITS ---
Patient Name: Virgie Chávez Procedure Date: 10/20/2024 11:54 AM Date of : 1985 Age: 38 Procedure: Upper GI endoscopy Indications: Epigastric abdominal pain, Functional Dyspepsia Providers: Christiano Lara DO Referring MD: Dick Valentine Medicines: Monitored Anesthesia Care Patient Profile: This is a 38 year old female. Refer to note in patient chart for documentation of history and physical. Patient has symptoms. Complications: No immediate complications. Procedure: Pre-Anesthesia Assessment: - Prior to the procedure, a History and Physical was performed, and patient medications and allergies were reviewed. The patient is competent. The risks and benefits of the procedure and the sedation options and risks were discussed with the patient. All questions were answered and informed consent was obtained. Patient identification and proposed procedure were verified by the physician in the pre-procedure area. Mental Status Examination: alert and oriented. Airway Examination: normal oropharyngeal airway and neck mobility. Respiratory Examination: clear to auscultation. CV Examination: normal. Prophylactic Antibiotics: The patient does not require prophylactic antibiotics. Prior Anticoagulants: The patient has taken no anticoagulant or antiplatelet agents except for NSAID medication. ASA Grade Assessment: II - A patient with mild systemic disease. After reviewing the risks and benefits, the patient was deemed in satisfactory condition to undergo the procedure. The anesthesia plan was to use monitored anesthesia care (MAC). Immediately prior to administration of medications, the patient was re-assessed for adequacy to receive sedatives. The heart rate, respiratory rate, oxygen saturations, blood pressure, adequacy of pulmonary ventilation, and response to care were monitored throughout the procedure. The physical status of the patient was re-assessed after the procedure. After obtaining informed consent, the endoscope was passed under direct vision. Throughout the procedure, the patient's blood pressure, pulse, and oxygen saturations were monitored continuously. The gastroscope was introduced through the mouth, and advanced to the fourth part of the duodenum. Small bowel enteroscopy was deemed necessary. The upper GI endoscopy was accomplished without difficulty. The patient tolerated the procedure well. Scope In: 12:04:56 PM Scope Out: 12:08:53 PM Total Procedure Duration Time 0 hours 3 minutes 57 seconds Findings: The Z-line was irregular and was found 38 cm from the incisors. Biopsies were taken with a cold forceps for histology. Verification of patient identification for the specimen was done. Estimated blood loss was minimal. Evidence of a fundoplication was found in the gastric fundus. The wrap appeared intact. This was traversed. Suspect gastroparesis due to absence of peristalsis and patient symptoms. No gross lesions were noted in the entire examined duodenum. Impression: - Z-line irregular, 38 cm from the incisors. Biopsied. - A fundoplication was found. The wrap appears intact. - Gastroparesis. - No gross lesions in the entire examined duodenum. Recommendation: - Discharge patient to home. - Resume previous diet. - Continue present medications. - Await pathology results. Procedure Code(s): --- Professional --- 39874, Small intestinal endoscopy, enteroscopy beyond second portion of duodenum, not including ileum; with biopsy, single or multiple CPT copyright 2021 [employer]. All rights reserved. The codes documented in this report are preliminary and upon wood web weaving machine operator review may be revised to meet current compliance requirements. Christiano Lara DO 10/20/2024 12:23:32 PM This report has been signed electronically. Number of Addenda: 0 Note Initiated On: 10/20/2024 11:54 AM
--- NOTE | 2024-10-20 12:23 | OP.CCLET_ITS ---
10/20/2024 Dick Valentine Re : Upper GI endoscopy procedure for Virgie Chávez Dear Meme This procedure was performed on Sunday, October 20, 2024. My impressions and recommendations are as follows: Impressions : - Z-line irregular, 38 cm from the incisors. Biopsied. - A fundoplication was found. The wrap appears intact. - Gastroparesis. - No gross lesions in the entire examined duodenum. Recommendations : - Discharge patient to home. - Resume previous diet. - Continue present medications. - Await pathology results. My findings are described in the full procedure note, which is enclosed. If I can be of further assistance, please feel free to contact me at . Sincerely, Christiano Lara, 10/20/2024 12:23:32 PM This report has been signed electronically.
--- NOTE | 2024-10-20 12:42 | PCM.POSTANE2 ---
Anesthesia Postop Eval I Sum Postop Eval Completion status Anesthesia document: Postop Eval 1 completed: Yes Anesthesia Postop Eval I Summary Anesthesia Postop Eval I Summary: Anesthesia Postop Eval I: Assessment Summary Airway patent Yes 10/20/24 12:19 [email or web address] Spontaneous unlabored Yes 10/20/24 12:19 [email or web address] respirations Mental status Awake,Calm 10/20/24 12:19 [email or web address] nausea No 10/20/24 12:19 [email or web address] Vomiting No 10/20/24 12:19 [email or web address] Anesthesia Postop Eval I: Fluid Summary Crystalloid volume administer 300 10/20/24 12:19 [email or web address] (ml) Colloids volume administered ( ml) Blood Product volume administered (ml) Total IV fluid infused 300 10/20/24 12:19 [email or web address] Anesthesia Postop Eval I: Summary Notes Anesthesia Complication No 10/20/24 12:19 [email or web address] Anesthesia Complication Comment: Post-operative progress note Anesthesia: Postop Eval II Evaluation Mental status: Awake and Calm Pain Level: 0 nausea: No Vomiting: No Complications Anesthesia Complication: No
--- NOTE | 2024-10-20 14:20 | PCM.POSTANE2 ---
Anesthesia Postop Eval I Sum Postop Eval Completion status Anesthesia document: Postop Eval 1 completed: Yes Anesthesia Postop Eval I Summary Anesthesia Postop Eval I Summary: Anesthesia Postop Eval I: Assessment Summary Airway patent Yes 10/20/24 12:19 [email or web address] Spontaneous unlabored Yes 10/20/24 12:19 [email or web address] respirations Mental status Awake,Calm 10/20/24 12:42 nausea No 10/20/24 12:42 Vomiting No 10/20/24 12:42 Anesthesia Postop Eval I: Fluid Summary Crystalloid volume administer 300 10/20/24 12:19 [email or web address] (ml) Colloids volume administered ( ml) Blood Product volume administered (ml) Total IV fluid infused 300 10/20/24 12:19 [email or web address] Anesthesia Postop Eval I: Summary Notes Anesthesia Complication No 10/20/24 12:42 Anesthesia Complication Comment: Post-operative progress note Anesthesia: Postop Eval II Evaluation Mental status: Awake Pain Level: 0 nausea: No Vomiting: No
== END 2024-10-20 13:12 | disposition home or self-care (01) ==
LOC: EN 10:13 → AC 10:14
PROVIDERS: PCP Nurse Practitioner Family; Referring Provider Nurse Practitioner Family; Visit Provider Internal Medicine Gastroenterology
PROC: 0DJ08ZZ Inspection of Upper Intestinal Tract, Via Natural or Artificial Opening Endoscopic (ICD-10-PCS; CPT 43235; principal; 2024-10-20 11:10)
DX: R10.13 Epigastric pain (principal); K31.84 Gastroparesis; Z90.721 Acquired absence of ovaries, unilateral; Z90.710 Acquired absence of both cervix and uterus; Z90.49 Acquired absence of other specified parts of digestive tract; K22.89 Other specified disease of esophagus; K20.90 Esophagitis, unspecified without bleeding
CPT/HCPCS: 43239; 88305; J2405